=== PATIENT | male | born 1935 | race Caucasian/White ===

== ENCOUNTER 2017-03-13 16:52 | Emergency (ER) | payer MEDICARE, OTHER, SELFPAY ==
[2017-03-13 16:52] VITALS: BP 121/58; PULSE 67; RESP 15; TEMP 36.4; O2SAT 93; BMI 32.6
--- NOTE | 2017-03-13 17:23 | ED.VISSUMM ---
- ER Visit Summary Date of Service: 03/13/17 Chief Complaint: Fell attempting to go to the restroom History of Present Illness: The patient is a 81 M who has history of frequent falls. He states the nurse did not respond to his call light. Got up to use the restroom since he did not want to wet himself. He fell complaining of pain left pelvic area near the insertion site of the quadricep for Berny tendon. He also sustained a laceration left elbow. He denied head trauma. He denies headache. He denies nausea or vomiting. He denies any ocular, visual or auditory symptoms. He denies neck pain. He denies paresthesia, anesthesia moderates present at time of the fall. He denies any cardiorespiratory symptoms. Physical Examination: Should not is alert and oriented ?3. Vital signs are unremarkable. Head is atraumatic normocephalic. Pupils are equal round reactive. Extraocular muscles are intact. TMs are pearly white with landmarks noted. Nares patent with no drainage. Posterior pharynx without erythema or exudate. Uvula is midline. There is no dysphonia or dysphasia. Trachea is midline. There is no stridor with auscultation of the neck. There is no evidence of head trauma. There is no clinical signs of basal skull fracture. C-spine was cleared per Nexus criteria. Heart is regular without murmur, gallop or rub. S1 and S2 are normal. Lungs are clear to auscultation with good movement of air bilaterally. He has a linear laceration left elbow which will require repair. Axillary, median, radial and ulnar function intact. There is no pain the patient over the medial or lateral epicondyles or the olecranon process. There is no pain the patient over the radial head with supination pronation. There is pain palpation left pelvic area near the left superior pubic ramus. He has pain with flexion of the hip. DP pulses palpable. There is no pain with logrolling of the left lower external he appears no pain the patient over the femur, knee, tibia or fibula, ankle or foot. GCS is 15. Patient is alert and oriented ?3. Motor is 5/5. Sensation is intact. DTRs are symmetric without clonus or Babinski. Cranial nerves II through XII are intact. Finger to nose to finger was performed adequately. Test Results: Single view x-ray of the pelvis reveals no acute findings i.e. fracture. There is arthritic changes. Emergency Department Course and Treatment: The pelvis was obtained to evaluate for pull off fracture. The left elbow laceration will require repair. Treatment Plan: Recent wound was anesthetized with lidocaine. The wound was irrigated with 200 cc normal saline. Using 4-0 Ethilon a total of 3 stitches was placed. Disposition: Discharged to home with appropriate home-going instructions Impression: 1. Mechanical fall with injury initial encounter 2. Left quadricep femoris muscle strain 3. 2 cm left elbow laceration 4. High risk medication, Coumadin This note was generated with [employer] dictation software. It may contain incorrect words, spelling, and punctuation that were not noted in review of the chart prior to signing ED Disposition - Plan for ED Patient: Disposition: Home or Assisted Living Chief Complaint: Fall Instructions: ED Mechanical Fall, ED Laceration Ext Sutr Tape Ch, ED Sprain Hip Referrals: Alpesh Edgar III, MD [Primary Care Provider] - 10 Day for suture removal Additional Instructions: Apply ice to left groin 20-30 minutes at a time 6 day times a day for the next 3-5 days.
--- NOTE | 2017-03-13 17:25 | RAD_ITS ---
STUDY: X-RAY - PELVIS REASON FOR EXAM: Male, 81 years old. Left groin pain. TECHNIQUE: One view of the pelvis was obtained. COMPARISON: None. FINDINGS: There is a non-specific bowel gas pattern. Normal visualized soft tissue structures. There is generalized osteopenia. Normal bilateral iliac wings, sacroiliac joints and visualized sacrum. Normal visualized bilateral superior and inferior pubic rami. Normal pubic symphysis. Normal ischial tuberosities. There is mild arthrosis of both hips. RAD/Pelvis 1 or 2 Views IMPRESSION: Osteopenia with arthrosis of both hips. No acute pathology. Electronically Signed: Eddi Salcedo MD at 17:55 EST , Service support ,
[2017-03-13] MEDS: Diphth,Pertuss(Acell),Tet Vac 0.5 ML Vial IM (17:50)
[2017-03-13 18:14] LABS: Partial Thromboplast Time 30.3 Seconds (24.1-36.2)
[2017-03-13] MEDS: Acetaminophen 325 MG Tablet 650 MG PO (19:11)
[2017-03-13 19:21] VITALS: BP 127/65; PULSE 71; RESP 16; O2SAT 94
--- NOTE | 2017-03-13 19:24 | ED.VISSUMM ---
- ER Visit Summary Date of Service: 03/13/17 Chief Complaint: [] History of Present Illness: The patient is a 81 M [] Physical Examination: [] Test Results: [] Emergency Department Course and Treatment: [] Treatment Plan: [] Disposition: [] Impression: [] This note was generated with [employer] dictation software. It may contain incorrect words, spelling, and punctuation that were not noted in review of the chart prior to signing ED Disposition - Plan for ED Patient: Disposition: Home or Assisted Living Chief Complaint: Fall Instructions: ED Mechanical Fall, ED Sprain Hip, ED Laceration Ext Sutr Tape Ch Prescriptions: Hydrocodone Bitart/Apap 5-325 [[place] 5MG-325MG] 1 tablet PO Q6H PRN PRN #10 tablet PRN Reason: Pain Referrals: Alpesh Edgar III, MD [Primary Care Provider] - 10 Day for suture removal Additional Instructions: Apply ice to left groin 20-30 minutes at a time 6 day times a day for the next 3-5 days.
--- NOTE | 2017-03-13 19:28 | ED.DCSUM_ITS ---
- ER Visit Summary Date of Service: 03/13/17 Chief Complaint: [] History of Present Illness: The patient is a 81 M [] Physical Examination: [] Test Results: [] Emergency Department Course and Treatment: [] Treatment Plan: [] Disposition: [] Impression: [] This note was generated with [employer] dictation software. It may contain incorrect words, spelling, and punctuation that were not noted in review of the chart prior to signing ED Disposition - Plan for ED Patient: Disposition: Home or Assisted Living Chief Complaint: Fall Instructions: ED Mechanical Fall, ED Sprain Hip, ED Laceration Ext Sutr Tape Ch Prescriptions: Hydrocodone Bitart/Apap 5-325 [[place] 5MG-325MG] 1 tablet PO Q6H PRN PRN #10 tablet PRN Reason: Pain Referrals: Alpesh Edgar III, MD [Primary Care Provider] - 10 Day for suture removal Additional Instructions: Apply ice to left groin 20-30 minutes at a time 6 day times a day for the next 3 -5 days.
== END 2017-03-13 20:01 | disposition home or self-care (01) ==
PROVIDERS: Emergency Provider Emergency Medicine; Family Provider Family Medicine; PCP Family Medicine
DX: S76.112A Strain of left quadriceps muscle, fascia and tendon, initial encounter (principal); S51.012A Laceration without foreign body of left elbow, initial encounter; W18.30XA Fall on same level, unspecified, initial encounter; Y93.9 Activity, unspecified; Y92.9 Unspecified place or not applicable; Y99.9 Unspecified external cause status; I48.91 Unspecified atrial fibrillation; E11.9 Type 2 diabetes mellitus without complications; R29.6 Repeated falls; Z79.4 Long term (current) use of insulin; Z79.01 Long term (current) use of anticoagulants; Z79.899 Other long term (current) drug therapy; Z85.72 Personal history of non-Hodgkin lymphomas; Z86.718 Personal history of other venous thrombosis and embolism; Z86.73 Personal history of transient ischemic attack (TIA), and cerebral infarction without residual deficits
CPT/HCPCS: 12001; 36415; 72170; 85730; 90471; 90715; 99285; J7030

== ENCOUNTER 2017-08-17 00:29 | Emergency (ER) | payer MEDICARE, OTHER, SELFPAY ==
[2017-08-17 00:30] VITALS: BP 109/61; PULSE 71; RESP 16; TEMP 36.5; O2SAT 93; BMI 30.1
--- NOTE | 2017-08-17 01:50 | ED.VISSUMM ---
- ER Visit Summary Date of Service: 08/17/17 Chief Complaint: Fall with skin tears and left ear laceration History of Present Illness: The patient is a 82 M on Coumadin due to A. fib and he also has a heart valve. Patient states he lost his balance and fell striking the arm of a chair that was metal cutting his left ear. Said he did not strike his face or his head just the ear. Also dorsum of his right hand and left arm has skin tears which they have already bandaged. He denies other injuries. He denies any LOC. He denies any headache. Denies any hip pain. Physical Examination: Older male no acute distress. Vital signs are stable afebrile. No distress. H EENT exam pupils round reactive light. No facial trauma. No scalp trauma no tenderness. His left upper ear is a through and through laceration and will need to be repaired. It is more than 3 cm in length. Neck nontender trachea midline. C-spine nontender. Lungs clear to auscultation bilaterally. Heart regular rate and rhythm no murmur. Chest wall nontender. Abdomen soft nontender. Normal bowel sounds no peritoneal signs. Pelvic girdle intact. Extremities moving all 4. No deformity. Nontender. Normal range of motion. Bilateral 5 out of 5 yard jacker strength. Bilateral dorsi and plantar flexion. Back nontender. Neurologically is awake alert answering his own questions. Following commands. Moving his extremities. Test Results: None. At this time I do not think he has a head injury I think he lacerated his ear but did not strike his head. There are no signs of head trauma nor does he have a headache we will defer a CAT scan at this time. Emergency Department Course and Treatment: Left upper ear laceration repair. 6-7 cm in length. Area was cleaned with Shur-Clens and washed and irrigated with saline. Locally anesthetized with 1% lidocaine. Let was previously applied. Closed using simple interrupted # 7 5-0 Ethilon sutures. Proper hemostasis wound closure obtained patient tolerated procedure well. Treatment Plan: Suture removal 10 days. Ice to the wound. Wound care. Keflex 500 4 times daily for 5 days due to the cartilage laceration. Disposition: Discharge Impression: Acute fall Left upper outer ear laceration through and through with cartilage involvement of 7 centimeters with ER repair Minor skin tears dorsum of his right hand and left arm This note was generated with [employer] dictation software. It may contain incorrect words, spelling, and punctuation that were not noted in review of the chart prior to signing ED Disposition - Plan for ED Patient: Chief Complaint: Fall Referrals: Alpesh Edgar III, MD [Primary Care Provider] -
--- NOTE | 2017-08-17 01:53 | ED.DCSUM_ITS ---
- ER Visit Summary Date of Service: 08/17/17 Chief Complaint: Fall with skin tears and left ear laceration History of Present Illness: The patient is a 82 M on Coumadin due to A. fib and he also has a heart valve. Patient states he lost his balance and fell striking the arm of a chair that was metal cutting his left ear. Said he did not strike his face or his head just the ear. Also dorsum of his right hand and left arm has skin tears which they have already bandaged. He denies other injuries. He denies any LOC. He denies any headache. Denies any hip pain. Physical Examination: Older male no acute distress. Vital signs are stable afebrile. No distress. H EENT exam pupils round reactive light. No facial trauma. No scalp trauma no tenderness. His left upper ear is a through and through laceration and will need to be repaired. It is more than 3 cm in length. Neck nontender trachea midline. C-spine nontender. Lungs clear to auscultation bilaterally. Heart regular rate and rhythm no murmur. Chest wall nontender. Abdomen soft nontender. Normal bowel sounds no peritoneal signs. Pelvic girdle intact. Extremities moving all 4. No deformity. Nontender. Normal range of motion. Bilateral 5 out of 5 hat measurer strength. Bilateral dorsi and plantar flexion. Back nontender. Neurologically is awake alert answering his own questions. Following commands. Moving his extremities. Test Results: None. At this time I do not think he has a head injury I think he lacerated his ear but did not strike his head. There are no signs of head trauma nor does he have a headache we will defer a CAT scan at this time. Emergency Department Course and Treatment: Left upper ear laceration repair. 6- 7 cm in length. Area was cleaned with Shur-Clens and washed and irrigated with saline. Locally anesthetized with 1% lidocaine. Let was previously applied. Closed using simple interrupted # 7 5-0 Ethilon sutures. Proper hemostasis wound closure obtained patient tolerated procedure well. Treatment Plan: Suture removal 10 days. Ice to the wound. Wound care. Keflex 500 4 times daily for 5 days due to the cartilage laceration. Disposition: Discharge Impression: Acute fall Left upper outer ear laceration through and through with cartilage involvement of 7 centimeters with ER repair Minor skin tears dorsum of his right hand and left arm This note was generated with [employer] dictation software. It may contain incorrect words, spelling, and punctuation that were not noted in review of the chart prior to signing ED Disposition - Plan for ED Patient: Chief Complaint: Fall Referrals: Alpesh Edgar III, MD [Primary Care Provider] -
[2017-08-17] MEDS: Lidocaine/Epi/Tetracaine 50 ML 1 APPLIC TOPICAL (02:03)
--- NOTE | 2017-08-17 02:38 | ED.DEP ---
ED Disposition - Plan for ED Patient: Disposition: Home or Assisted Living Chief Complaint: Fall Instructions: ED Laceration Facial Sutr Tape Prescriptions: Cephalexin [Keflex] 500 mg PO Q6 #20 cap Referrals: Alpesh Edgar III, MD [Primary Care Provider] - 10 Day for suture removal Additional Instructions: Keep wound clean. Clean twice daily with soap and water or peroxide and water. Dry thoroughly. Apply antibiotic ointment to the wound. Apply ice to decrease the swelling of the ear. Suture removal in 10 days. There are 7 simple interrupted sutures. Watch for any signs of infection. Keflex 1 pill 4 times a day for 5 days. This was due to the laceration of the ear cartilage.
[2017-08-17 02:54] VITALS: BP 106/70; PULSE 65; RESP 15; O2SAT 94
== END 2017-08-17 03:40 | disposition skilled nursing facility (03) ==
PROVIDERS: Emergency Provider Emergency Medicine; Family Provider Family Medicine; PCP Family Medicine
DX: S01.312A Laceration without foreign body of left ear, initial encounter (principal); S61.411A Laceration without foreign body of right hand, initial encounter; S41.112A Laceration without foreign body of left upper arm, initial encounter; W01.190A Fall on same level from slipping, tripping and stumbling with subsequent striking against furniture, initial encounter; Y93.9 Activity, unspecified; Y92.9 Unspecified place or not applicable; Y99.9 Unspecified external cause status; I48.91 Unspecified atrial fibrillation; Z79.82 Long term (current) use of aspirin; Z79.01 Long term (current) use of anticoagulants; Z79.899 Other long term (current) drug therapy
CPT/HCPCS: 12014; 99285

== ENCOUNTER → 2018-07-02 11:08 | Outpatient (CLI) | payer MEDICARE, OTHER, SELFPAY ==
[2018-07-02 11:51] LABS: Absolute Lymphocyte Count 1.65 X10^3/ul (0.83-4.51); Absolute Neutrophil Count 3.1 X10^3/uL (2.0-7.7); Basophil# 0.03 X10^3/uL; Basophil% 0.6 % (0-1); Eosinophil# 0.15 X10^3/uL; Eosinophils% 2.8 % (0-5); Hematocrit 37.4 % (40-54); Hemoglobin 12.1 g/dl (13.0-16.5); Lymphocyte # 1.65 X10^3/ul (4.0); Lymphocyte % 30.4 % (19-41); Mean Corp Hgb Conc 32.4 g/gl (32-36); Mean Corpuscular Hgb 31.5 pg (27.0-32.0); Mean Corpuscular Volume 97.4 fL (80-94); Mean Platelet Vol. 11.5 fl (6.2-12.0); Monocyte# 0.52 X10^3/uL; Monocyte% 9.6 % (0-10); Neutrophil # 3.07 X10^3/uL (2.7-7.7); Neutrophil % 56.4 % (47-70); Platelet Count 196 K/mm3 (150-450); RBC Distribution Width CV 16.2 % (11.6-14.6); Red Blood Count 3.84 M/mm3 (4.6-6.2); White Blood Count 5.4 K/mm3 (4.4-11.0)
[2018-07-02 11:54] LABS: POSITIVE COUNT NO; POSITIVE DIFFERENTIAL NO; POSITIVE MORPHOLOGY NO
[2018-07-02 12:17] LABS: BUN 26 mg/dL (7-18); Creatinine, Serum 1.92 mg/dL (0.70-1.30); EST Glomerular Filtration Rate 36 mL/min (>60); Glucose 107 mg/dL (74-106)
[2018-07-02 12:18] LABS: Anion Gap 4 (5-15); BUN/Creat Ratio 13.5 RATIO (10-20); Calcium,Total 8.5 mg/dL (8.5-10.1); Chloride 112 mmol/L (98-107); Est Glom Filt Rate - Afr Amer 43 mL/min (>60); Potassium 4.8 mmol/L (3.5-5.1); Sodium Level 143 mmol/L (136-145)
== END ==
PROVIDERS: Family Provider Family Medicine; PCP Family Medicine; Referring Provider Internal Medicine Cardiovascular Disease; Visit Provider Internal Medicine Cardiovascular Disease
DX: I10 Essential (primary) hypertension (principal); I48.91 Unspecified atrial fibrillation
CPT/HCPCS: 36415; 80048; 85025

== ENCOUNTER 2018-07-10 12:15 | Inpatient (IN) | payer MEDICARE, OTHER, SELFPAY ==
[2018-07-10] VITALS (15 sets, daily range): BP systolic 98–175; BP diastolic 57–87; PULSE 76–89; RESP 12–40; TEMP 36.3–36.9; O2SAT 95–100; BMI 32.3; BMI 29.8
--- NOTE | 2018-07-10 12:38 | CT_ITS ---
STUDY: CT ABDOMEN AND PELVIS WITHOUT CONTRAST REASON FOR EXAM: Male, 83 years old. Altered mental status, shortness of breath RADIATION DOSAGE (If Supplied By Facility): CTDIvol = ( 23.01 ) mGy, DLP = ( 1259.20 ) mGycm TECHNIQUE: Transaxial images were obtained from the dome of the diaphragm to the symphysis pubis without oral contrast, and without intravenous contrast. Sagittal and coronal images were reconstructed. Individualized dose optimization techniques were used for this CT. COMPARISON: None. FINDINGS: There are chronic interstitial fibrotic changes of the lung bases. Cardiac conduction device, coronary artery atherosclerosis and mitral valve calcifications partially visualized. No hepatic masses. There are multiple gallstones. There are multiple benign calcified granulomata of the liver and spleen. Normal pancreas. Normal bilateral adrenal glands. There is moderate cortical atrophy of the right kidney, consistent with chronic medical renal disease. There is moderate cortical atrophy of the left kidney, consistent with chronic medical renal disease. No hydronephrosis. Normal visualized stomach. Normal small intestine. Normal colon. There is non-visualization of the appendix. There is diffuse atherosclerotic calcification of the abdominal aorta, without a demonstrated aneurysm. Normal inferior vena cava. Normal retroperitoneum. Chahal catheter decompresses urinary bladder. There is slight induration in the presacral adipose tissue and may be related to prior surgery or radiation therapy. No focal fluid collection or mass seen. There is an injection granuloma of the right buttock. There are diffuse degenerative changes of the visualized lumbar spine. Compression fracture of L2 (mild) is likely chronic. CT/Abdomen/Pelvis without Cont IMPRESSION: 1. No acute inflammatory process or bowel obstruction. 2. Cholelithiasis without CT evidence of cholecystitis. 3. Probable postradiation or postsurgical changes of the presacral pelvis. No focal mass or fluid collection. 4. Chahal catheter. Electronically Signed: Ayden Garcia MD at 15:23 EDT , Service support ,
--- NOTE | 2018-07-10 12:38 | CT_ITS ---
STUDY: CT BRAIN WITHOUT CONTRAST REASON FOR EXAM: Male, 83 years old. Altered mental status with increased weakness RADIATION DOSAGE (If Supplied By Facility): CTDIvol = ( 29.64 ) mGy, DLP = ( 514.31 ) mGycm TECHNIQUE: Transaxial CT imaging of the brain was performed without administration of intravenous contrast material. Individualized dose optimization techniques were used for this CT. COMPARISON: 10/23/2015 FINDINGS: Normal soft tissue structures. Normal calvarium. There is mild cerebral atrophy with widening of the extra-axial spaces and ventricular dilatation. There are areas of decreased attenuation within the white matter tracts of the supratentorial brain, consistent with microvascular disease changes. Normal basal ganglia and thalami. Normal brainstem. Normal cerebellum. There is no intracranial hemorrhage. There are no findings of an acute ischemic infarction. Normal visualized paranasal sinuses. CT/Brain/Head without Contrast IMPRESSION: 1. No acute intracranial hemorrhage or mass effect. 2. Central parenchymal volume loss. White matter changes that are nonspecific but most commonly associated with chronic small vessel ischemic disease. Electronically Signed: Ayden Garcia MD at 15:16 EDT , Service support ,
--- NOTE | 2018-07-10 12:38 | EKG12_ITS ---
Test Reason : Blood Pressure : / mmHG Vent. Rate : 081 BPM Atrial Rate : 267 BPM P-R Int : 000 ms QRS Dur : 120 ms QT Int : 406 ms P-R-T Axes : 000 103 045 degrees QTc Int : 471 ms Atrial fibrillation Rightward axis Non-specific intra-ventricular conduction delay Nonspecific ST and T wave abnormality Abnormal ECG Confirmed by CONRAD THOMAS, JAYA ([id number]), deputy editor in chief [facility] [employer] ([id number]) on 07/14/2018 11:50:49 AM Referred By: TRIP Confirmed By:JAYA MARTINES MD
--- NOTE | 2018-07-10 12:46 | ED.VISSUMM ---
- ER Visit Summary Date of Service: 07/10/18 Chief Complaint: Shortness of breath History of Present Illness: The patient is a 83 M with shortness of breath and multiple other medical complaints. Symptoms have been going on for about a week and a half but were worse over the past 3 days. The patient is currently a resident at [facility]. He has been short of breath and wheezing. He may have some airspace disease on his x-ray. He has been confused and not eating much. He has been complaining of lower abdominal and back pain. He also reports bilateral leg pain. Patient has a history of B-cell lymphoma and brain cancer. He is told he is in remission. He is DNR comfort care arrest. He is okay with intubation if need be. History of atrial fibrillation, DVT, anemia, seizure, bipolar disorder, hypertension, hyperlipidemia, pacemaker, and others. He does take Coumadin. Physical Examination: Afebrile and vital signs unremarkable except for his respiratory rate of 40. Patient is 95% on room air. He is speaking in 1-2 word phrases. He is oriented, but he is intermittently somnolent. Head and neck are atraumatic. Heart is regular. Lungs are diminished in all goldman. Abdomen is soft and nontender. Extremities nontender. Skin is pale. Test Results: EKG pending. CT brain, chest x-ray, and CT abdomen pending. Sepsis labs and ABG pending. Cultures pending. Emergency Department Course and Treatment: Patient was placed on the monitor. We will try BiPAP to help with his work of breathing. Will check EKG, imaging, and labs as above. Will reassess. EKG showed atrial fibrillation and rate of 81. Chest x-ray showed right lower lobe infiltrate and a right upper lobe nodule. CT brain and CT abdomen pelvis showed chronic changes but nothing acute. He has cholelithiasis without cholecystitis and a Chahal catheter in place. Postoperative and postradiation changes. Hemoglobin 11.0. BUN 39, creatinine 2.32. Liver enzymes are about 300. Lipase normal. INR 7.0. Troponin 0.027. Lactate 2.4. ABG unremarkable. Blood cultures pending. Patient was taken off of BiPAP when he underwent CT. He seemed to be doing well on nasal cannula. He is breathing fast at times, but I think he is anxious. He has no respiratory symptoms or signs of distress. Patient's pneumonia treated with Zosyn and vancomycin. He is a half-way resident. He did have a systolic pressure of 100, but his map was greater than 65. No sign of shock. Technically he does not meet sepsis criteria, but his infection with elevated lactate are concerning for sepsis. I treated him with additional fluids IV. INR is 7.0, but the patient has no evidence of bleeding. Patient's liver enzymes are elevated. This is new. I added a hepatic panel. Hospitalist was contacted for admission. Treatment Plan: As above Disposition: Admission Impression: 1. Pneumonia healthcare associated 2. Elevated lactic acid 3. Supratherapeutic INR 4. Lung nodule 5. Elevated liver enzymes 6. Acute kidney injury This note was generated with [email or web address] dictation software. It may contain incorrect words, spelling, and punctuation that were not noted in review of the chart prior to signing ED Disposition - Plan for ED Patient: Referrals: Alpesh Edgar III, MD [Primary Care Provider] -
[2018-07-10] MEDS: 0.9% Normal Saline 1,000 ML IV.SOLN. 1000 ML IV (12:50)
[2018-07-10 12:53] LABS: Absolute Lymphocyte Count 1.41 X10^3/ul (0.83-4.51); Absolute Neutrophil Count 4.2 X10^3/uL (2.0-7.7); Basophil# 0.02 X10^3/uL; Basophil% 0.3 % (0-1); Eosinophil# 0.06 X10^3/uL; Eosinophils% 0.9 % (0-5); Hematocrit 33.4 % (40-54); Lymphocyte # 1.41 X10^3/ul (4.0); Lymphocyte % 21.5 % (19-41); Mean Corp Hgb Conc 32.9 g/gl (32-36); Mean Corpuscular Hgb 31.5 pg (27.0-32.0); Mean Corpuscular Volume 95.7 fL (80-94); Mean Platelet Vol. 11.9 fl (6.2-12.0); Monocyte# 0.87 X10^3/uL; Monocyte% 13.2 % (0-10); Neutrophil % 63.9 % (47-70); POSITIVE COUNT NO; POSITIVE DIFFERENTIAL NO; POSITIVE MORPHOLOGY NO; Platelet Count 178 K/mm3 (150-450); RBC Distribution Width CV 16.6 % (11.6-14.6); RBC Distribution Width SD 57.2 fl (35.1-43.9); Red Blood Count 3.49 M/mm3 (4.6-6.2); White Blood Count 6.6 K/mm3 (4.4-11.0)
--- NOTE | 2018-07-10 12:54 | RAD_ITS ---
STUDY: X-RAY CHEST REASON FOR EXAM: Male, 83 years old. Dyspnea TECHNIQUE: AP COMPARISON: 06/25/2015 FINDINGS: EKG leads project over the chest. 2-lead cardiac conduction device is stable. Surgical clips of the left breast/axilla stable. Patchy infiltrates in the right lung base with nodular infiltrate in the right upper lobe, new since the prior study. The nodular component measures 3.7 cm. There is moderate cardiac enlargement. Sternal wires and mediastinal surgical clips compatible with prior CABG. Normal visualized pulmonary arteries. Normal visualized aortic arch and descending thoracic aorta. No acute bony process. There is no demonstrated abnormality of the visualized soft tissue structures of the upper abdomen. RAD/Chest 1 View (Portable) IMPRESSION: 1. Right lower lobe infiltrate suggesting pneumonia. 2. Right upper lobe nodular density could also represent infection/pneumonia, however, follow-up x-ray after appropriate medical therapy recommended to ensure resolution. Electronically Signed: Ayden Garcia MD at 13:14 EDT , Service support ,
[2018-07-10 12:59] LABS: Prothrombin Time (Protime)PT. 61.4 SECONDS (11.7-14.9)
[2018-07-10 13:00] LABS: Partial Thromboplast Time 63.2 Seconds (24.1-36.2)
[2018-07-10 13:09] LABS: ALB/GLOB Ratio 0.7 RATIO (0.9-2.4); AST(SGOT) 298 U/L (15-37); Alanine Aminotransfer ALT/SGPT 282 U/L (16-61); Albumin, Serum 2.8 g/dL (3.2-5.0); Alkaline Phosphatase 92 U/L (45-117); Anion Gap 9 (5-15); BUN 39 mg/dL (7-18); BUN/Creat Ratio 16.8 RATIO (10-20); Calcium,Total 7.8 mg/dL (8.5-10.1); Chloride 112 mmol/L (98-107); Creatinine, Serum 2.32 mg/dL (0.70-1.30); EST Glomerular Filtration Rate 29 mL/min (>60); Est Glom Filt Rate - Afr Amer 35 mL/min (>60); Estimated Creatinine Clearance 30.14 ml/min; Glucose 123 mg/dL (74-106); Lipase 38 U/L (73-393); Potassium 4.2 mmol/L (3.5-5.1); Protein, Total 6.8 g/dL (6.4-8.2); Sodium Level 142 mmol/L (136-145)
--- NOTE | 2018-07-10 13:14 | ED.RN ---
arlet inr 7.0 called from the lab
[2018-07-10 13:16] LABS: Lactic Acid 2.4 mmol/L (0.4-2.0)
--- NOTE | 2018-07-10 13:16 | ED.RN ---
lactic 2.4 called from the lab dr [place]
[2018-07-10 13:53] LABS: Bacteria 0 SEEN /hpf (None Seen); Mucous, Urine 0 SEEN /hpf (<or=2+); Squamous Epithelial Cells - UA 0 SEEN /hpf (0-5); White Blood Cells 0 SEEN /hpf (0-5)
--- NOTE | 2018-07-10 14:09 | ED.RN ---
SPOKE WITH MD REGARDING LACTATE, NO NEW ORDERS GIVEN AT THIS TIME.
--- NOTE | 2018-07-10 14:10 | ED.RN ---
[facility] CALLED AND STATED THAT THE INR THEY HAD DRAWN YESTERDAY WAS 7.6. MD CASTILLO.
[2018-07-10 14:25] LABS: Allen Test POS; Base Excess -5 mmol/L (-2 to +2); Bicarbonate 19.7 mmol/L (22-26); Blood Gas Specimen Type ART; EPAP 8; FI02 35; IPAP 12; PO2 145 mmHG (75-100); RR 12; SITE R Radial; SO2 99 % (95-99); Time Given 1412; Total Carbon Dioxide 21 mmol/L; pH 7.38 (7.35-7.45)
[2018-07-10 14:40] LABS: Color, Urine Yellow (Yellow); Glucose, Dipstick Normal (Normal); Ketone-Dipstick 5 mg/dl (Negative); Leukocyte Esterase-Dipstick 25 /ul (Negative); Nitrite-Dipstick Negative (Negative); Occult Blood-Urine 50 /ul (Negative); Protein-Dipstick 30 mg/dl (Negative); Specific Gravity, Urine 1.025 (1.002-1.030); Urine Bilirubin Dipstick Negative (Negative); Urine Clarity Clear (Clear); Urine Urobilinogen 1 mg/dl (Normal)
[2018-07-10 14:54] LABS: Red Blood Cells-Urine 0-5 SEEN /hpf (0-5)
[2018-07-10] MEDS: 0.9% Normal Saline 1,000 ML 999 ML IV (16:05)
[2018-07-10 16:44] LABS: Reflex Lactate? Y
--- NOTE | 2018-07-10 16:49 | HP.PCM_ITS ---
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 The patient is a 83 year old M who presents from senior care facility to emergency room due to shortness of breath, cough, chills. He reports his symptoms began approximately 2 days ago. He states cough is nonproductive. Patient reports he has had intermittent abdominal discomfort as well across the lower abdomen. Denies flank pain, urinary symptoms. Denies nausea, vomiting, diarrhea. at bedside reports patient has been in the nursing facility for approximately 3 years due to debility following treatment for metastatic B-cell lymphoma and also history of CVA. His other past medical history includes type 2 diabetes mellitus, permanent atrial fibrillation on chronic anticoagulation with Coumadin, GERD, BPH, hyperlipidemia, gout, anxiety/depression. 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, non-EBV mediated (Chronic) C85.99 B-cell lymphoma (Acute) C85.10 BPH (benign prostatic hyperplasia) N40.0 Bipolar disorder F31.9 CVA (cerebral vascular accident) I63.9 Cardiomyopathy I42.9 DVT (deep venous thrombosis) I82.409 Delusional disorder F22 Esophageal stricture K22.2 GERD (gastroesophageal reflux disease) K21.9 Gout M10.9 Major depressive disorder F32.9 Melanoma C43.9 Mild cognitive impairment G31.84 Presence of permanent cardiac pacemaker Z95.0 TIA (transient ischemic attack) G45.9 Type 2 diabetes mellitus without complication E11.9 DVT (deep venous thrombosis) (Inactive) I82.409 NHL (non-Hodgkin's lymphoma) (Inactive) C85.90 Allergies levofloxacin Allergy (Verified 07/10/18 12:22) Unknown simvastatin [From Zocor] Allergy (Verified 07/10/18 12:22) Unknown heparin Adverse Reaction (Verified 07/10/18 12:22) Low platelets Home Medications: Ambulatory Orders Medication Instructions Recorded Ondansetron [Zofran] 4 mg PO Q6H PRN PRN 05/14/15 Polyethylene Glycol 3350 [Miralax] 17 gm PO DAILY 05/14/15 Sennosides/Docusate Sodium 1 ea PO BID 05/14/15 [Senna-Docusate Sodium Tablet] Allopurinol [Zyloprim] 100 mg PO DAILYCM #0 tab 06/24/15 Famotidine [Pepcid] 20 mg PO DAILY #0 tab 06/24/15 Bisacodyl 10 mg RC PRN PRN 08/17/17 Guaifenesin [Robitussin] 10 ml PO Q4H PRN PRN 08/17/17 Hydrocortisone [Anusol Hc] 25 mg RECTAL BID PRN PRN 08/17/17 Magnesium Hydroxide [Milk Of 30 ml PO DAILY PRN PRN 08/17/17 Magnesia] Magnesium Oxide [Magnesium] 400 mg PO QHS 08/17/17 Melatonin 2 mg PO QHS 08/17/17 Menthol [Biofreeze] 1 applic TP Q2H PRN PRN 08/17/17 Midodrine HCl [Proamatine] 2.5 mg PO TID 08/17/17 Mineral Oil/Petrolatum,White 1 applic TOPICAL DAILY PRN PRN 08/17/17 [Eucerin] Na Phos,M-B/Na Phos,Di-Ba [Fleet 120 ml RECTAL PRN PRN 08/17/17 Enema] Tamsulosin HCl [Flomax] 0.4 mg PO DAILY@1730 08/17/17 Warfarin [Coumadin (PBKC)] 5 mg PO SUTUTHSA 07/02/18 Warfarin [Coumadin] 2.5 mg PO MOWEFR 08/17/17 buPROPion XL [Wellbutrin Xl] 300 mg PO DAILY 08/17/17 acetaminophen 650 mg rectal 650 mg RC Q4H PRN PRN 07/01/18 suppository aluminum-magnesium hydroxide 200 30 ml PO Q4H PRN ml 07/01/18 mg-200 mg/5 mL oral suspension artificial tears (hypromellose) 2 drp OPHTHALMIC 4-8XD 07/01/18 (PF) 0.3 % eye drops loratadine 10 mg tablet 10 mg PO DAILY 07/01/18 polysaccharide iron complex 150 mg 150 mg PO DAILY cap 07/01/18 iron capsule quetiapine 25 mg tablet 25 mg PO BID 07/01/18 Acetaminophen [Tylenol Tablet] 650 mg PO Q4H PRN PRN 07/10/18 Amoxicillin/Potassium Clav 1 each PO BID 07/10/18 [Augmentin 875-125 Tablet] Aspirin [Aspir-Low] 81 mg PO DAILY 07/10/18 Atorvastatin Calcium [Lipitor] 40 mg PO QHS 07/10/18 Surgical History: Surgical History (Last Reviewed 07/02/18 @ 10:42 by Wil Hart MD) History of mitral valve repair (Resolved) Onset Date: 10/2008 Z98.890 #33 bicor ring History of cardioversion Onset Date: 10/25/08 Z98.890 History of left heart catheterization Onset Date: 06/2008 Z98.890 History of radiofrequency ablation (RFA) procedure for cardiac arrhythmia Z98.890 x 4 - unsuccessful Surgical History: pacemaker implantation - 2008, - - melanoma on back, mitral valve replacement ( porcine ) 2007, brain biopsy 03/27/15 Psychiatric History: Anxiety, Depression [facility] Smoking Status: Smoker, status unknown Alcohol: None Drugs: None - *Family History Maternal Family History: Family History (Last Reviewed 07/10/18 @ 16:50 by ALETHA Barajas) Father Pulmonary embolism Mother Arthritis Sister hyperlipidemia Sister Breast cancer Sister Cancer History Items: Cancer, Heart Disease - age 96 Sibling Family History: Family History (Last Reviewed 07/10/18 @ 16:50 by ALETHA Barajas) Father Pulmonary embolism Mother Arthritis Sister hyperlipidemia Sister Breast cancer Sister Cancer History Items: Cancer - brain,melanoma, age 36 Paternal Family History: Family History (Last Reviewed 07/10/18 @ 16:50 by ALETHA Barajas) Father Pulmonary embolism Mother Arthritis Sister hyperlipidemia Sister Breast cancer Sister Cancer History Items: - - age 46 accident Review of Systems Constitutional: Reports: Chills, Malaise, Fatigue. Denies: Fever HEENT: Denies: Head Aches, Sinus Congestion, Sinus Drainage Cardiovascular: Denies: Chest Pain, Edema, Palpitations, Syncope Respiratory: Reports: Cough, Shortness of Breath. Denies: Sputum production Gastrointestinal: Reports: Abdominal Pain. Denies: Constipation, Diarrhea, Nausea, Vomiting Genitourinary: Denies: Dysuria Musculoskeletal: Denies: Joint Pain, Joint Tenderness Skin: Denies: Rash, Wounds Neurological: Denies: Numbness, Tingling, Focal weakness Psychiatric: Reports: Anxiety, Depression. Denies: Homicidal Ideations, Suicidal Ideations Hematologic/ Lymphatic: Denies: Easy Bruising, Easy Bleeding VTE Information - Inpt Only VTE Present on Admission: No VTE Mechan Device Prophylaxis: None VTE Pharm Prophylaxis ordered?: No Reason prophylaxis not ordered:: Medical Contraindication - Physical Exam General: Alert, Oriented x3, Cooperative, - - Fatigued/ill-appearing HEENT: Atraumatic, PERRLA, EOMI, Normocephalic Oral: Dry Mucosa Neck: Supple, No JVD, Negative Carotid Bruits Lungs: Diminished, Rhonchi Cardiovascular: Regular rate, Regular Rhythm, Normal S1, Normal S2 Abdomen: Bowel Sounds Present, Soft, Non Tender, Non-Distended, Obese Extremities: No clubbing, No cyanosis, No edema, Capillary Refill Less than 3 Seconds Skin: No rashes, No breakdown Musculoskeletal: No Tenderness to Palpation of Joints or Extremities Neurological: Cranial nerves II-XII grossly intact, Neuro grossly intact Psych/Mental Status: Flat Affect Vital Signs Temp Pulse Resp BP Pulse Ox 97.9 F 79 28 H 100/69 98 07/10/18 16:32 07/10/18 16:32 07/10/18 16:32 07/10/18 16:32 07/10/18 16:32 Oxygen Flow Rate (L/min) 2 Oxygen Delivery Method Nasal Cannula Weight: 265 lb 3.457 oz Body Mass Index (BMI) 32.3 Laboratory Tests Past 24 Hrs 07/10/18 07/10/1807/10/19 12:25 12:25 12:25 WBC 6.6 RBC 3.49 L Hgb 11.0 L Hct 33.4 L MCV 95.7 H MCH 31.5 MCHC 32.9 RDW 16.6 H RDW Differential 57.2 H Plt Count 178 MPV 11.9 Immature Gran % (Auto) 0.200 Neut % (Auto) 63.9 Lymph % (Auto) 21.5 Emmet % (Auto) 13.2 H Eos % (Auto) 0.9 Baso % (Auto) 0.3 Absolute Neuts (auto) 4.2 Absolute Lymphs (auto) 1.41 Total Counted Not Reportable PT 61.4 H INR 7.0 H* APTT 63.2 H Specimen Type Sample Site pH Bicarbonate Actual POC Total CO2 Base Excess O2 Saturation O2 % ABG pCO2 ABG pO2 Erasmo Test Respiration Rate O2 Delivery Device EPAP IPAP Blood Gas Notified Whom Blood Gas Notified Time Sodium 142 Potassium 4.2 Chloride 112 H Carbon Dioxide 21.0 Anion Gap 9 BUN 39 H Creatinine 2.32 H Estim Creat Clear Calc 30.14 Est GFR (MDRD) Af Amer 35 L Est GFR (MDRD) Non-Af 29 L BUN/Creatinine Ratio 16.8 Glucose 123 H Lactic Acid Calcium 7.8 L Total Bilirubin 1.00 AST 298 H ALT 282 H Alkaline Phosphatase 92 Troponin I 0.027 Total Protein 6.8 Albumin 2.8 L Globulin 4.0 Albumin/Globulin Ratio 0.7 L Lipase 38 L Urine Color Urine Clarity Urine pH Ur Specific [place] Urine Protein Urine Glucose (UA) Urine Ketones Urine Occult Blood Urine Nitrite Urine Bilirubin Urine Urobilinogen Ur Leukocyte Esterase Urine RBC Urine WBC Ur Squamous Epith Cells Urine Bacteria Urine Mucus 07/10/18 07/10/18 07/10/18 12:25 13:49 14:21 WBC RBC Hgb Hct MCV MCH MCHC RDW RDW Differential Plt Count MPV Immature Gran % (Auto) Neut % (Auto) Lymph % (Auto) Emmet % (Auto) Eos % (Auto) Baso % (Auto) Absolute Neuts (auto) Absolute Lymphs (auto) Total Counted PT INR APTT Specimen Type ART Sample Site R Radial pH 7.38 Bicarbonate Actual 19.7 L POC Total CO2 21 Base Excess -5 L O2 Saturation 99 O2 % 35 ABG pCO2 33.0 L ABG pO2 145 H Erasmo Test POS Respiration Rate 12 O2 Delivery Device Bi / C PAP EPAP 8 IPAP 12 Blood Gas Notified Whom ED Blood Gas Notified Time 1412 Sodium Potassium Chloride Carbon Dioxide Anion Gap BUN Creatinine Estim Creat Clear Calc Est GFR (MDRD) Af Amer Est GFR (MDRD) Non-Af BUN/Creatinine Ratio Glucose Lactic Acid 2.4 H Calcium Total Bilirubin AST ALT Alkaline Phosphatase Troponin I Total Protein Albumin Globulin Albumin/Globulin Ratio Lipase Urine Color Yellow Urine Clarity Clear Urine pH 5.0 Ur Specific [place] 1.025 Urine Protein 30 H Urine Glucose (UA) Normal Urine Ketones 5 H Urine Occult Blood 50 H Urine Nitrite Negative Urine Bilirubin Negative Urine Urobilinogen 1 H Ur Leukocyte Esterase 25 H Urine RBC 0-5 SEEN Urine WBC 0 SEEN Ur Squamous Epith Cells 0 SEEN Urine Bacteria 0 SEEN Urine Mucus 0 SEEN Assessment/Plan All Active Problems (Last Reviewed 07/02/18 @ 10:42 by Wil Hart MD) B-cell lymphoma (Resolved) Status post stereotactic brain biopsy (Resolved) 1. Acute hypoxic respiratory failure secondary to healthcare associated pneumonia-chest x-ray admission with right lower lobe infiltrate, right upper lobe nodular density. Afebrile, no leukocytosis. Initially placed on BiPAP on admission, oxygen now stable on room air. Continue supplement oxygen to maintain O2 at or above 90%. IV vancomycin and IV Zosyn. Albuterol and DuoNeb aerosols. Send sputum for culture. Urine for strep Legionella. 2. Permanent atrial fibrillation on chronic anticoagulation, complicated by supratherapeutic INR-hold Coumadin, trend INR. 3. Elevated liver enzymes-CT of abdomen shows cholelithiasis without evidence of cholecystitis, otherwise no acute process. Repeat LFTs in a.m. Hepatitis panel sent in ER. 4. Acute kidney injury on chronic kidney disease stage III-suspect secondary to dehydration. IV fluids, trend BMP. 5. 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 Previously followed with Dr. Cho, currently in remission. 6. History of CVA-continue aspirin, statin. 7. Type 2 diabetes mellitus-does not appear to be on regimen. Accu-Cheks ACHS with sliding scale insulin. 8. GERD- continue PPI. 9. BPH-continue Flomax regimen. Chahal placed in ER. 10. Hyperlipidemia- continue statin. 11. Gout- continue allopurinol regimen. 12. Anxiety/depression-continue home bupropion, quetiapine. 13. Physical debility- Resides at SNF. PT/OT. DVT prophylaxis- SCDs Code status- DNRCCA This patient was seen by ALETHA Barajas under the supervision of Dr. Bradford. 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, non-EBV mediated (Chronic) C85.99 B-cell lymphoma (Acute) C85.10 BPH (benign prostatic hyperplasia) N40.0 Bipolar disorder F31.9 CVA (cerebral vascular accident) I63.9 Cardiomyopathy I42.9 DVT (deep venous thrombosis) I82.409 Delusional disorder F22 Esophageal stricture K22.2 GERD (gastroesophageal reflux disease) K21.9 Gout M10.9 Major depressive disorder F32.9 Melanoma C43.9 Mild cognitive impairment G31.84 Presence of permanent cardiac pacemaker Z95.0 TIA (transient ischemic attack) G45.9 Type 2 diabetes mellitus without complication E11.9 DVT (deep venous thrombosis) (Inactive) I82.409 NHL (non-Hodgkin's lymphoma) (Inactive) C85.90 Allergies levofloxacin Allergy (Verified 07/10/18 12:22) Unknown simvastatin [From Zocor] Allergy (Verified 07/10/18 12:22) Unknown heparin Adverse Reaction (Verified 07/10/18 12:22) Low platelets Surgical History: Surgical History (Last Reviewed 07/02/18 @ 10:42 by Wil Hart MD) History of mitral valve repair (Resolved) Onset Date: 10/2008 Z98.890 #33 bicor ring History of cardioversion Onset Date: 10/25/08 Z98.890 History of left heart catheterization Onset Date: 06/2008 Z98.890 History of radiofrequency ablation (RFA) procedure for cardiac arrhythmia Z98.890 x 4 - unsuccessful - *Family History Maternal Family History: Family History (Last Reviewed 07/10/18 @ 16:50 by ALETHA Barajas) Father Pulmonary embolism Mother Arthritis Sister hyperlipidemia Sister Breast cancer Sister Cancer Sibling Family History: Family History (Last Reviewed 07/10/18 @ 16:50 by ALETHA Barajas) Father Pulmonary embolism Mother Arthritis Sister hyperlipidemia Sister Breast cancer Sister Cancer Paternal Family History: Family History (Last Reviewed 07/10/18 @ 16:50 by ALETHA Barajas) Father Pulmonary embolism Mother Arthritis Sister hyperlipidemia Sister Breast cancer Sister Cancer - Physical Exam Vital Signs Temp Pulse Resp BP Pulse Ox 98.4 F 79 28 H 100/69 98 07/10/18 16:39 07/10/18 16:32 07/10/18 16:32 07/10/18 16:32 07/10/18 16:32 Oxygen Flow Rate (L/min) 2 Oxygen Delivery Method Nasal Cannula Weight: 265 lb 3.457 oz Body Mass Index (BMI) 32.3 Laboratory Tests Past 24 Hrs 07/10/18 07/10/18 07/10/18 12:25 12:25 12:25 WBC 6.6 RBC 3.49 L Hgb 11.0 L Hct 33.4 L MCV 95.7 H MCH 31.5 MCHC 32.9 RDW 16.6 H RDW Differential 57.2 H Plt Count 178 MPV 11.9 Immature Gran % (Auto) 0.200 Neut % (Auto) 63.9 Lymph % (Auto) 21.5 Emmet % (Auto) 13.2 H Eos % (Auto) 0.9 Baso % (Auto) 0.3 Absolute Neuts (auto) 4.2 Absolute Lymphs (auto) 1.41 Total Counted Not Reportable PT 61.4 H INR 7.0 H* APTT 63.2 H Specimen Type Sample Site pH Bicarbonate Actual POC Total CO2 Base Excess O2 Saturation O2 % ABG pCO2 ABG pO2 Erasmo Test Respiration Rate O2 Delivery Device EPAP IPAP Blood Gas Notified Whom Blood Gas Notified Time Sodium 142 Potassium 4.2 Chloride 112 H Carbon Dioxide 21.0 Anion Gap 9 BUN 39 H Creatinine 2.32 H Estim Creat Clear Calc 30.14 Est GFR (MDRD) Af Amer 35 L Est GFR (MDRD) Non-Af 29 L BUN/Creatinine Ratio 16.8 Glucose 123 H Lactic Acid Calcium 7.8 L Total Bilirubin 1.00 AST 298 H ALT 282 H Alkaline Phosphatase 92 Troponin I 0.027 Total Protein 6.8 Albumin 2.8 L Globulin 4.0 Albumin/Globulin Ratio 0.7 L Lipase 38 L Urine Color Urine Clarity Urine pH Ur Specific [place] Urine Protein Urine Glucose (UA) Urine Ketones Urine Occult Blood Urine Nitrite Urine Bilirubin Urine Urobilinogen Ur Leukocyte Esterase Urine RBC Urine WBC Ur Squamous Epith Cells Urine Bacteria Urine Mucus Hepatitis A IgM Ab Hep Bs Antigen Hep B Core IgM Ab Hepatitis C Ab (EIA) 07/10/18 07/10/18 07/10/18 12:25 13:49 14:21 WBC RBC Hgb Hct MCV MCH MCHC RDW RDW Differential Plt Count MPV Immature Gran % (Auto) Neut % (Auto) Lymph % (Auto) Emmet % (Auto) Eos % (Auto) Baso % (Auto) Absolute Neuts (auto) Absolute Lymphs (auto) Total Counted PT INR APTT Specimen Type ART Sample Site R Radial pH 7.38 Bicarbonate Actual 19.7 L POC Total CO2 21 Base Excess -5 L O2 Saturation 99 O2 % 35 ABG pCO2 33.0 L ABG pO2 145 H Erasmo Test POS Respiration Rate 12 O2 Delivery Device Bi / C PAP EPAP 8 IPAP 12 Blood Gas Notified Whom ED Blood Gas Notified Time 1412 Sodium Potassium Chloride Carbon Dioxide Anion Gap BUN Creatinine Estim Creat Clear Calc Est GFR (MDRD) Af Amer Est GFR (MDRD) Non-Af BUN/Creatinine Ratio Glucose Lactic Acid 2.4 H Calcium Total Bilirubin AST ALT Alkaline Phosphatase Troponin I Total Protein Albumin Globulin Albumin/Globulin Ratio Lipase Urine Color Yellow Urine Clarity Clear Urine pH 5.0 Ur Specific [place] 1.025 Urine Protein 30 H Urine Glucose (UA) Normal Urine Ketones 5 H Urine Occult Blood 50 H Urine Nitrite Negative Urine Bilirubin Negative Urine Urobilinogen 1 H Ur Leukocyte Esterase 25 H Urine RBC 0-5 SEEN Urine WBC 0 SEEN Ur Squamous Epith Cells 0 SEEN Urine Bacteria 0 SEEN Urine Mucus 0 SEEN Hepatitis A IgM Ab Hep Bs Antigen Hep B Core IgM Ab Hepatitis C Ab (EIA) 07/10/18 16:38 WBC RBC Hgb Hct MCV MCH MCHC RDW RDW Differential Plt Count MPV Immature Gran % (Auto) Neut % (Auto) Lymph % (Auto) Emmet % (Auto) Eos % (Auto) Baso % (Auto) Absolute Neuts (auto) Absolute Lymphs (auto) Total Counted PT INR APTT Specimen Type Sample Site pH Bicarbonate Actual POC Total CO2 Base Excess O2 Saturation O2 % ABG pCO2 ABG pO2 Erasmo Test Respiration Rate O2 Delivery Device EPAP IPAP Blood Gas Notified Whom Blood Gas Notified Time Sodium Potassium Chloride Carbon Dioxide Anion Gap BUN Creatinine Estim Creat Clear Calc Est GFR (MDRD) Af Amer Est GFR (MDRD) Non-Af BUN/Creatinine Ratio Glucose Lactic Acid Calcium Total Bilirubin AST ALT Alkaline Phosphatase Troponin I Total Protein Albumin Globulin Albumin/Globulin Ratio Lipase Urine Color Urine Clarity Urine pH Ur Specific [place] Urine Protein Urine Glucose (UA) Urine Ketones Urine Occult Blood Urine Nitrite Urine Bilirubin Urine Urobilinogen Ur Leukocyte Esterase Urine RBC Urine WBC Ur Squamous Epith Cells Urine Bacteria Urine Mucus Hepatitis A IgM Ab Pending Hep Bs Antigen Pending Hep B Core IgM Ab Pending Hepatitis C Ab (EIA) Pending Code Visit Addendum: Dr. Bradford I personally examined the patient and reviewed the chart. I agree with the above. 83-year-old male resident of [facility] presenting with cough shortness of breath. He was started on Augmentin 2 days ago for possible pneumonia however was transferred today for worsening shortness of breath. On chest x-ray he was found to have consolidation in his right lower lobe with possible right upper lobe nodule. CT of the head was negative and CT of the abdomen and pelvis did not show anything acute, he does have cholestasis but nothing to indicate a cholecystitis. He was found to have elevated liver enzymes as well as an elevated creatinine. This is likely secondary to the to lack of blood flow given his pneumonia and his acute hypoxic respiratory failure. Unfortunately he did not meet any sirs criteria on admission other than tachypnea, and is therefore not septic. We will continue with vancomycin and Zosyn, and will obtain Legionella antigen as well as a strep antigen and a sputum culture. Blood cultures are pending. Of note his INR is 7 so we will hold his home warfarin dose until his INR corrects. Inpatient E&M: 11751 Init Hosp L3
[2018-07-10 18:07] LABS: Lactic Acid 2.1 mmol/L (0.4-2.0)
[2018-07-10] MEDS: Ipratropium/Albuterol Sulfate 3 ML AMPUL.NEB INHALATION (19:29)
[2018-07-10] MEDS: Acetaminophen 650 MG Suppository RECTAL (21:03)
--- NOTE | 2018-07-10 21:15 | PCM.RX.CS ---
Consult Pharmacy has been consulted to manage selected antiobiotic: Vancomycin Type of Consult: New start Suspected Infection: Pneumonia Labs: Sodium 142 mmol/L (136-145) 07/10/18 12:25 Potassium 4.2 mmol/L (3.5-5.1) 07/10/18 12:25 Chloride 112 mmol/L (98-107) H 07/10/18 12:25 Carbon Dioxide 21.0 mmol/L (21.0-32.0) 07/10/18 12:25 Anion Gap 9 (5-15) 07/10/18 12:25 BUN 39 mg/dL (7-18) H 07/10/18 12:25 Creatinine 2.32 mg/dL (0.70-1.30) H 07/10/18 12:25 Est GFR (MDRD) Af Amer 35 mL/min (>60) L 07/10/18 12:25 Est GFR (MDRD) Non-Af 29 mL/min (>60) L 07/10/18 12:25 BUN/Creatinine Ratio 16.8 RATIO (10-20) 07/10/18 12:25 Glucose 123 mg/dL (74-106) H 07/10/18 12:25 Microbiology: Microbiology 07/10/18 18:45 Urine Catheter - Chahal Legionella Antigen - Final 07/10/18 18:45 Urine Catheter - Chahal Streptococcus pneumoniae Antigen (M - Final Weight used for dosin.1 kg Estimated Creatinine Clearance: 27.69 Goal Trough: 15-20 mcg/mL Pharmacy Plan for Drug Dosing: Pharmacy Service will continue to monitor and adjust dosing as required. Medications Vancomycin HCl 1,250 mg/ (Sodium Chloride) 275 mls @ 167 mls/hr IV Q24H KUSH Discontinued Medications Vancomycin HCl 1,750 mg/ (Sodium Chloride) 535 mls @ 250 mls/hr IV X1 ONE Stop: 07/10/18 18:08 Last Admin: 07/10/18 16:29 Dose: 250 mls/hr Follow-Up Labs: Trough Vancomycin Labs to be done on [date and time ordered]: 07/12 @ 1600
[2018-07-10] MEDS: Morphine 2 MG/ML Syringe IV (21:17)
[2018-07-10] MEDS: 0.9% NaCl Peripheral Flush Adult/Peds IV (21:17)
[2018-07-10] MEDS: 0.9% Normal Saline 1,000 ML 125 ML IV (21:20)
--- NOTE | 2018-07-10 21:41 | CPS ---
Patient refusing BiPAP on floor. BiPAP order will be kept in, but no BiPAP in room. Patient will be monitored at night.
[2018-07-11] VITALS (14 sets, daily range): BP systolic 95–119; BP diastolic 55–71; PULSE 85–98; RESP 18–26; TEMP 36.7–37; O2SAT 93–99
--- NOTE | 2018-07-11 00:29 | NURSING ---
Bladder scanned patient d/t frequent c/o feeling like he needed to void despite reorienting that he had a catheter inserted. Bladder scanned for 30cc. Will monitor.
[2018-07-11] MEDS: Haloperidol Lactate 5 MG/ML Vial 2 MG IV (05:08)
[2018-07-11] MEDS: 0.9% Normal Saline 1,000 ML 125 ML IV ×2 (05:09→14:00)
[2018-07-11 06:29] LABS: Prothrombin Time (Protime)PT. 84.4 SECONDS (11.7-14.9)
[2018-07-11 06:30] LABS: Basophil# 0.03 X10^3/uL; Basophil% 0.4 % (0-1); Eosinophil# 0.06 X10^3/uL; Eosinophils% 0.9 % (0-5); Hematocrit 34.3 % (40-54); Hemoglobin 11.1 g/dl (13.0-16.5); Lymphocyte % 15.7 % (19-41); Mean Corp Hgb Conc 32.4 g/gl (32-36); Mean Corpuscular Volume 98.8 fL (80-94); Mean Platelet Vol. 12.5 fl (6.2-12.0); Monocyte% 11.4 % (0-10); Neutrophil # 5.02 X10^3/uL (2.7-7.7); Neutrophil % 71.5 % (47-70); Platelet Count 170 K/mm3 (150-450); RBC Distribution Width CV 17.2 % (11.6-14.6); Red Blood Count 3.47 M/mm3 (4.6-6.2)
[2018-07-11 06:47] LABS: International Normalized Ratio 10.4
--- NOTE | 2018-07-11 06:48 | NURSING ---
Pts primary rn aware of pts inr of 10.4 at this time.
[2018-07-11 06:49] LABS: ALB/GLOB Ratio 0.6 RATIO (0.9-2.4); AST(SGOT) 761 U/L (15-37); Alanine Aminotransfer ALT/SGPT 637 U/L (16-61); Albumin, Serum 2.5 g/dL (3.2-5.0); Alkaline Phosphatase 105 U/L (45-117); Anion Gap 10 (5-15); BUN 42 mg/dL (7-18); BUN/Creat Ratio 17.1 RATIO (10-20); Calcium,Total 7.8 mg/dL (8.5-10.1); Chloride 116 mmol/L (98-107); Creatinine, Serum 2.46 mg/dL (0.70-1.30); EST Glomerular Filtration Rate 27 mL/min (>60); Est Glom Filt Rate - Afr Amer 33 mL/min (>60); Estimated Creatinine Clearance 28.42 ml/min; Glucose 126 mg/dL (74-106); POSITIVE COUNT NO; POSITIVE DIFFERENTIAL NO; POSITIVE MORPHOLOGY NO; Potassium 5.1 mmol/L (3.5-5.1); Protein, Total 6.5 g/dL (6.4-8.2); Sodium Level 145 mmol/L (136-145)
[2018-07-11 06:56] LABS: Bedside Glucose 136 mg/dL (70-110)
[2018-07-11] MEDS: Ipratropium/Albuterol Sulfate 3 ML AMPUL.NEB INHALATION ×3 (07:00→18:37)
[2018-07-11 07:48] LABS: Hemoglobin A1c 6.2 % (4.2-6.3)
--- NOTE | 2018-07-11 08:39 | US_ITS ---
STUDY: ULTRASOUND GALLBLADDER REASON FOR VISIT: Male, 83 years old. MEHUL TECHNIQUE: Ultrasound evaluation of the gallbladder was performed with real-time and static chavez-scale imaging. TECHNICAL QUALITY: Limited. Examination limited due to the patient?s condition. COMPARISON: None. FINDINGS: Gallbladder: Normal distended gallbladder. The gallbladder wall measures 2.9 mm. There is a negative sonographic Beavers's sign. There is no pericholecystic fluid. Focal echogenic rounded structure in the dependent portion of gallbladder may represent a sludge ball or nonshadowing stone. Common Bile Duct (C.B.D.): The common bile duct measures 3.2 mm. The liver is enlarged measuring 21 cm with diffusely heterogeneous echogenicity. US/Gallbladder IMPRESSION: 1. Solitary gallstone or tumefactive sludge ball. 2. No sonographic evidence of acute cholecystitis or biliary obstruction. 3. Hepatomegaly. Electronically Signed: Ayden Garcia MD at 11:20 EDT , Service support ,
[2018-07-11 12:01] LABS: Bedside Glucose 110 mg/dL (70-110)
--- NOTE | 2018-07-11 13:21 | PCM.PROGNOTE ---
<Susanna Xie - Last Filed: 07/11/18 13:27> Subjective: Patient seen and examined. Reports his breathing is about the same. Denies abdominal pain. Denies fever, chills. - Physical Exam General: Alert, Oriented x3, Cooperative, - - Fatigued/ill-appearing. HEENT: Atraumatic, PERRLA, EOMI, Normocephalic Oral: Dry Mucosa Neck: Supple, No JVD, Negative Carotid Bruits Lungs: Diminished, Rhonchi Cardiovascular: Regular rate, Regular Rhythm, Normal S1, Normal S2, No murmurs Abdomen: Bowel Sounds Present, Soft, Non Tender, Non-Distended, Obese Extremities: No clubbing, No cyanosis, No edema, Capillary Refill Less than 3 Seconds Skin: No rashes, No breakdown Musculoskeletal: No Tenderness to Palpation of Joints or Extremities Neurological: Cranial nerves II-XII grossly intact, Neuro grossly intact Psych/Mental Status: Flat Affect Vital Signs Temp Pulse Resp BP Pulse Ox 98.5 F 92 25 H 107/58 L 98 07/11/18 04:31 07/11/18 07:51 07/11/18 07:44 07/11/18 04:31 07/11/18 07:44 Oxygen Flow Rate (L/min) 3 Oxygen Delivery Method Nasal Cannula Weight: 245 lb Body Mass Index (BMI) 29.8 Intake and Output for Last 24 Hours 07/09/18 07/10/18 07/11/18 23:59 23:59 23:59 Intake Total 543 / 543 822.1 / 822.1 Output Total 150 / 150 100 / 100 Balance 393 / 393 722.1 / 722.1 Microbiology Past 72 Hours 07/10/18 18:45 Legionella Antigen - Final Urine Catheter - Chahal 07/10/18 18:45 Streptococcus pneumoniae Antigen (M - Final Urine Catheter - Chah[place] Laboratory Tests Past 24 Hrs 07/10/18 07/10/18 07/10/18 13:49 14:21 16:38 WBC RBC Hgb Hct MCV MCH MCHC RDW RDW Differential Plt Count MPV Immature Gran % (Auto) Neut % (Auto) Lymph % (Auto) [place] % (Auto) Eos % (Auto) Baso % (Auto) Absolute Neuts (auto) Absolute Lymphs (auto) Total Counted PT INR Specimen Type ART Sample Site R Radial pH 7.38 Bicarbonate Actual 19.7 L POC Total CO2 21 Base Excess -5 L O2 Saturation 99 O2 % 35 ABG pCO2 33.0 L ABG pO2 145 H Erasmo Test POS Respiration Rate 12 O2 Delivery Device Bi / C PAP EPAP 8 IPAP 12 Blood Gas Notified Whom ED Blood Gas Notified Time 1412 Sodium Potassium Chloride Carbon Dioxide Anion Gap BUN Creatinine Estim Creat Clear Calc Est GFR (MDRD) Af Amer Est GFR (MDRD) Non-Af BUN/Creatinine Ratio Glucose Hemoglobin A1c Lactic Acid Calcium Total Bilirubin AST ALT Alkaline Phosphatase Total Protein Albumin Globulin Albumin/Globulin Ratio Urine Color Yellow Urine Clarity Clear Urine pH 5.0 Ur Specific [place] 1.025 Urine Protein 30 H Urine Glucose (UA) Normal Urine Ketones 5 H Urine Occult Blood 50 H Urine Nitrite Negative Urine Bilirubin Negative Urine Urobilinogen 1 H Ur Leukocyte Esterase 25 H Urine RBC 0-5 SEEN Urine WBC 0 SEEN Ur Squamous Epith Cells 0 SEEN Urine Bacteria 0 SEEN Urine Mucus 0 SEEN Hepatitis A IgM Ab Pending Hep Bs Antigen Pending Hep B Core IgM Ab Pending Hepatitis C Ab (EIA) Pending 07/10/18 07/11/18 07/11/18 17:27 05:30 05:30 WBC RBC Hgb Hct MCV MCH MCHC RDW RDW Differential Plt Count MPV Immature Gran % (Auto) Neut % (Auto) Lymph % (Auto) [place] % (Auto) Eos % (Auto) Baso % (Auto) Absolute Neuts (auto) Absolute Lymphs (auto) Total Counted PT 84.4 H INR 10.4 H* Specimen Type Sample Site pH Bicarbonate Actual POC Total CO2 Base Excess O2 Saturation O2 % ABG pCO2 ABG pO2 Erasmo Test Respiration Rate O2 Delivery Device EPAP IPAP Blood Gas Notified Whom Blood Gas Notified Time Sodium 145 Potassium 5.1 Chloride 116 H Carbon Dioxide 19.0 L Anion Gap 10 BUN 42 H Creatinine 2.46 H Estim Creat Clear Calc 28.42 Est GFR (MDRD) Af Amer 33 L Est GFR (MDRD) Non-Af 27 L BUN/Creatinine Ratio 17.1 Glucose 126 H Hemoglobin A1c Lactic Acid 2.1 H Calcium 7.8 L Total Bilirubin 1.20 H AST 761 H ALT 637 H Alkaline Phosphatase 105 Total Protein 6.5 Albumin 2.5 L Globulin 4.0 Albumin/Globulin Ratio 0.6 L Urine Color Urine Clarity Urine pH Ur Specific [place] Urine Protein Urine Glucose (UA) Urine Ketones Urine Occult Blood Urine Nitrite Urine Bilirubin Urine Urobilinogen Ur Leukocyte Esterase Urine RBC Urine WBC Ur Squamous Epith Cells Urine Bacteria Urine Mucus Hepatitis A IgM Ab Hep Bs Antigen Hep B Core IgM Ab Hepatitis C Ab (EIA) 07/11/18 07/11/18 05:30 05:30 WBC 7.0 RBC 3.47 L Hgb 11.1 L Hct 34.3 L MCV 98.8 H MCH 32.0 MCHC 32.4 RDW 17.2 H RDW Differential 60.0 H Plt Count 170 MPV 12.5 H Immature Gran % (Auto) 0.100 Neut % (Auto) 71.5 H Lymph % (Auto) 15.7 L [place] % (Auto) 11.4 H Eos % (Auto) 0.9 Baso % (Auto) 0.4 Absolute Neuts (auto) 5.0 Absolute Lymphs (auto) 1.10 Total Counted Not Reportable PT INR Specimen Type Sample Site pH Bicarbonate Actual POC Total CO2 Base Excess O2 Saturation O2 % ABG pCO2 ABG pO2 Erasmo Test Respiration Rate O2 Delivery Device EPAP IPAP Blood Gas Notified Whom Blood Gas Notified Time Sodium Potassium Chloride Carbon Dioxide Anion Gap BUN Creatinine Estim Creat Clear Calc Est GFR (MDRD) Af Amer Est GFR (MDRD) Non-Af BUN/Creatinine Ratio Glucose Hemoglobin A1c 6.2 Lactic Acid Calcium Total Bilirubin AST ALT Alkaline Phosphatase Total Protein Albumin Globulin Albumin/Globulin Ratio Urine Color Urine Clarity Urine pH Ur Specific [place] Urine Protein Urine Glucose (UA) Urine Ketones Urine Occult Blood Urine Nitrite Urine Bilirubin Urine Urobilinogen Ur Leukocyte Esterase Urine RBC Urine WBC Ur Squamous Epith Cells Urine Bacteria Urine Mucus Hepatitis A IgM Ab Hep Bs Antigen Hep B Core IgM Ab Hepatitis C Ab (EIA) POC Glucose 07/11/18 07/11/18 11:10 06:22 POC Glucose 110 136 H Medical Necessity - Tobacco Use Smoking Status: Never smoker Assessment/Plan All Active Problems (Last Reviewed 07/02/18 @ 10:42 by Wil Hart MD) B-cell lymphoma (Resolved) Status post stereotactic brain biopsy (Resolved) 1. Acute hypoxic respiratory failure secondary to healthcare associated pneumonia-chest x-ray admission with right lower lobe infiltrate, right upper lobe nodular density. Afebrile, no leukocytosis. Initially placed on BiPAP on admission, oxygen now stable on nasal cannula. Continue supplement oxygen to maintain O2 at or above 90%. IV vancomycin and IV Zosyn. Albuterol and DuoNeb aerosols. Send sputum for culture. Urine for strep and Legionella negative. Blood and urine cultures pending. 2. Permanent atrial fibrillation on chronic anticoagulation, complicated by supratherapeutic INR-hold Coumadin, trend INR. 3. Acute hepatitis, unclear etiology-CT of abdomen shows cholelithiasis without evidence of cholecystitis, otherwise no acute process. Hepatitis panel pending. Gallbladder ultrasound completed, report pending. Repeat LFTs in a.m. if not improved, will discuss transfer versus family wishes for aggressive treatment. 4. Acute kidney injury on chronic kidney disease stage III-suspect secondary to dehydration. IV fluids, trend BMP. 5. 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 Previously followed with Dr. Cho, currently in remission. 6. History of CVA-continue aspirin, statin. 7. Type 2 diabetes mellitus-does not appear to be on regimen. Accu-Cheks ACHS with sliding scale insulin. 8. GERD- continue PPI. 9. BPH-continue Flomax regimen. Chahal placed in ER. 10. Hyperlipidemia- continue statin. 11. Gout- continue allopurinol regimen. 12. Anxiety/depression-continue home bupropion, quetiapine. 13. Physical debility- Resides at SNF. PT/OT. DVT prophylaxis- SCDs Code status- DNRCCA This patient was seen by ALETHA Barajas under the supervision of Dr. Bradford. <Junaid Bradford F - Last Filed: 07/11/18 13:55> - Physical Exam Vital Signs Temp Pulse Resp BP Pulse Ox 98.5 F 92 25 H 107/58 L 98 07/11/18 04:31 07/11/18 07:51 07/11/18 07:44 07/11/18 04:31 07/11/18 07:44 Oxygen Flow Rate (L/min) 3 Oxygen Delivery Method Nasal Cannula Weight: 245 lb Body Mass Index (BMI) 29.8 Intake and Output for Last 24 Hours 07/09/18 07/10/18 07/11/18 23:59 23:59 23:59 Intake Total 543 / 543 822.1 / 822.1 Output Total 150 / 150 100 / 100 Balance 393 / 393 722.1 / 722.1 Microbiology Past 72 Hours 07/10/18 13:49 Urine Culture - Preliminary Urine, Catheterized Culture exhibits no growth. 07/10/18 18:45 Legionella Antigen - Final Urine Catheter - [place] 07/10/18 18:45 Streptococcus pneumoniae Antigen (M - Final Urine Catheter - [place] Laboratory Tests Past 24 Hrs 07/10/18 07/10/18 07/10/18 13:49 14:21 16:38 WBC RBC Hgb Hct MCV MCH MCHC RDW RDW Differential Plt Count MPV Immature Gran % (Auto) Neut % (Auto) Lymph % (Auto) [place] % (Auto) Eos % (Auto) Baso % (Auto) Absolute Neuts (auto) Absolute Lymphs (auto) Total Counted PT INR Specimen Type ART Sample Site R Radial pH 7.38 Bicarbonate Actual 19.7 L POC Total CO2 21 Base Excess -5 L O2 Saturation 99 O2 % 35 ABG pCO2 33.0 L ABG pO2 145 H Erasmo Test POS Respiration Rate 12 O2 Delivery Device Bi / C PAP EPAP 8 IPAP 12 Blood Gas Notified Whom ED Blood Gas Notified Time 1412 Sodium Potassium Chloride Carbon Dioxide Anion Gap BUN Creatinine Estim Creat Clear Calc Est GFR (MDRD) Af Amer Est GFR (MDRD) Non-Af BUN/Creatinine Ratio Glucose Hemoglobin A1c Lactic Acid Calcium Total Bilirubin AST ALT Alkaline Phosphatase Total Protein Albumin Globulin Albumin/Globulin Ratio Urine Color Yellow Urine Clarity Clear Urine pH 5.0 Ur Specific [place] 1.025 Urine Protein 30 H Urine Glucose (UA) Normal Urine Ketones 5 H Urine Occult Blood 50 H Urine Nitrite Negative Urine Bilirubin Negative Urine Urobilinogen 1 H Ur Leukocyte Esterase 25 H Urine RBC 0-5 SEEN Urine WBC 0 SEEN Ur Squamous Epith Cells 0 SEEN Urine Bacteria 0 SEEN Urine Mucus 0 SEEN Hepatitis A IgM Ab Pending Hep Bs Antigen Pending Hep B Core IgM Ab Pending Hepatitis C Ab (EIA) Pending 07/10/18 07/11/18 07/11/18 17:27 05:30 05:30 WBC RBC Hgb Hct MCV MCH MCHC RDW RDW Differential Plt Count MPV Immature Gran % (Auto) Neut % (Auto) Lymph % (Auto) [place] % (Auto) Eos % (Auto) Baso % (Auto) Absolute Neuts (auto) Absolute Lymphs (auto) Total Counted PT 84.4 H INR 10.4 H* Specimen Type Sample Site pH Bicarbonate Actual POC Total CO2 Base Excess O2 Saturation O2 % ABG pCO2 ABG pO2 Erasmo Test Respiration Rate O2 Delivery Device EPAP IPAP Blood Gas Notified Whom Blood Gas Notified Time Sodium 145 Potassium 5.1 Chloride 116 H Carbon Dioxide 19.0 L Anion Gap 10 BUN 42 H Creatinine 2.46 H Estim Creat Clear Calc 28.42 Est GFR (MDRD) Af Amer 33 L Est GFR (MDRD) Non-Af 27 L BUN/Creatinine Ratio 17.1 Glucose 126 H Hemoglobin A1c Lactic Acid 2.1 H Calcium 7.8 L Total Bilirubin 1.20 H AST 761 H ALT 637 H Alkaline Phosphatase 105 Total Protein 6.5 Albumin 2.5 L Globulin 4.0 Albumin/Globulin Ratio 0.6 L Urine Color Urine Clarity Urine pH Ur Specific [place] Urine Protein Urine Glucose (UA) Urine Ketones Urine Occult Blood Urine Nitrite Urine Bilirubin Urine Urobilinogen Ur Leukocyte Esterase Urine RBC Urine WBC Ur Squamous Epith Cells Urine Bacteria Urine Mucus Hepatitis A IgM Ab Hep Bs Antigen Hep B Core IgM Ab Hepatitis C Ab (EIA) 07/11/18 07/11/18 05:30 05:30 WBC 7.0 RBC 3.47 L Hgb 11.1 L Hct 34.3 L MCV 98.8 H MCH 32.0 MCHC 32.4 RDW 17.2 H RDW Differential 60.0 H Plt Count 170 MPV 12.5 H Immature Gran % (Auto) 0.100 Neut % (Auto) 71.5 H Lymph % (Auto) 15.7 L [place] % (Auto) 11.4 H Eos % (Auto) 0.9 Baso % (Auto) 0.4 Absolute Neuts (auto) 5.0 Absolute Lymphs (auto) 1.10 Total Counted Not Reportable PT INR Specimen Type Sample Site pH Bicarbonate Actual POC Total CO2 Base Excess O2 Saturation O2 % ABG pCO2 ABG pO2 Erasmo Test Respiration Rate O2 Delivery Device EPAP IPAP Blood Gas Notified Whom Blood Gas Notified Time Sodium Potassium Chloride Carbon Dioxide Anion Gap BUN Creatinine Estim Creat Clear Calc Est GFR (MDRD) Af Amer Est GFR (MDRD) Non-Af BUN/Creatinine Ratio Glucose Hemoglobin A1c 6.2 Lactic Acid Calcium Total Bilirubin AST ALT Alkaline Phosphatase Total Protein Albumin Globulin Albumin/Globulin Ratio Urine Color Urine Clarity Urine pH Ur Specific [place] Urine Protein Urine Glucose (UA) Urine Ketones Urine Occult Blood Urine Nitrite Urine Bilirubin Urine Urobilinogen Ur Leukocyte Esterase Urine RBC Urine WBC Ur Squamous Epith Cells Urine Bacteria Urine Mucus Hepatitis A IgM Ab Hep Bs Antigen Hep B Core IgM Ab Hepatitis C Ab (EIA) POC Glucose 07/11/18 07/11/18 11:10 06:22 POC Glucose 110 136 H Code Visit Addendum: Dr. Bradford I personally examined the patient and reviewed the chart. I agree with the above. 83-year-old male resident [facility] presenting with cough and shortness of breath as well as mild abdominal pain he was started on Augmentin 2 days prior to admission for pneumonia however he was transferred to the ER for worsening shortness of breath. On admission CT scan of the abdomen pelvis did not show anything acute, he did have cholestasis but nothing to indicate cholecystitis. He did have elevated liver enzymes on admission which did worsen today as did his total bilirubin. Chest x-ray showed a right lower lobe consolidation. He had an emergent gallbladder ultrasound which is still pending a read, the liver measures big and the common bile duct was normal size but there was sludge without wall thickening. At the moment we will continue with Zosyn and vancomycin and IV fluids. Depending on what happens over the next 24 hours we will discuss with the family options including transfer to a tertiary care center if they would prefer to proceed with aggressive intervention or possible comfort measures only if he does not improve. Inpatient E&M: 85607 Subs Hosp L2
[2018-07-11] MEDS: Glucerna Shake 120 ML LIQUID PO ×2 (14:50→17:11)
[2018-07-11 17:11] LABS: Bedside Glucose 112 mg/dL (70-110)
[2018-07-11] MEDS: guaiFENesin 10 ML UDC (200MG/10ML) PO (17:46)
[2018-07-11] MEDS: traZODone 50 MG Tablet PO (20:05)
[2018-07-11 22:05] LABS: Bedside Glucose 109 mg/dL (70-110)
[2018-07-12] VITALS (14 sets, daily range): BP systolic 107–119; BP diastolic 59–76; PULSE 78–95; RESP 16–30; TEMP 36.1–36.4; O2SAT 94–97
[2018-07-12] MEDS: 0.9% Normal Saline 1,000 ML 125 ML IV ×3 (02:20→16:20)
[2018-07-12 06:26] LABS: Hematocrit 35.8 % (40-54); Hemoglobin 11.4 g/dl (13.0-16.5); Mean Corp Hgb Conc 31.8 g/gl (32-36); Mean Corpuscular Hgb 31.7 pg (27.0-32.0); Mean Corpuscular Volume 99.4 fL (80-94); Mean Platelet Vol. 12.9 fl (6.2-12.0); Platelet Count 147 K/mm3 (150-450); RBC Distribution Width CV 17.2 % (11.6-14.6); RBC Distribution Width SD 59.5 fl (35.1-43.9); White Blood Count 8.5 K/mm3 (4.4-11.0)
[2018-07-12 06:38] LABS: Prothrombin Time (Protime)PT. 48.8 SECONDS (11.7-14.9)
[2018-07-12 06:47] LABS: International Normalized Ratio 5.2
[2018-07-12] MEDS: Ipratropium/Albuterol Sulfate 3 ML AMPUL.NEB INHALATION ×4 (06:48→19:12)
[2018-07-12 07:00] LABS: Bedside Glucose 78 mg/dL (70-110)
[2018-07-12 07:00] LABS: Scan Indicated on CBC? Y/N NO
[2018-07-12 07:05] LABS: ALB/GLOB Ratio 0.7 RATIO (0.9-2.4); AST(SGOT) 2401 U/L (15-37); Alanine Aminotransfer ALT/SGPT 1727 U/L (16-61); Albumin, Serum 2.6 g/dL (3.2-5.0); Alkaline Phosphatase 115 U/L (45-117); Anion Gap 15 (5-15); BUN 52 mg/dL (7-18); BUN/Creat Ratio 17.5 RATIO (10-20); Calcium,Total 7.8 mg/dL (8.5-10.1); Chloride 115 mmol/L (98-107); Creatinine, Serum 2.97 mg/dL (0.70-1.30); EST Glomerular Filtration Rate 22 mL/min (>60); Est Glom Filt Rate - Afr Amer 26 mL/min (>60); Estimated Creatinine Clearance 23.54 ml/min; Globulin 3.7 g/dL (2.2-4.2); Glucose 82 mg/dL (74-106); Potassium 5.7 mmol/L (3.5-5.1); Protein, Total 6.3 g/dL (6.4-8.2); Sodium Level 145 mmol/L (136-145)
[2018-07-12] MEDS: Loratadine 10 MG Tablet PO (09:12)
--- NOTE | 2018-07-12 12:12 | PCM.PN.HOSP ---
Subjective: He seems to be about the same since admission. He denies any abdominal pain today and is off of oxygen Vitals/I&O's: Vital Signs Temp Pulse Resp BP Pulse Ox 97 F L 84 18 107/64 94 07/12/18 09:10 07/12/18 09:10 07/12/18 09:10 07/12/18 09:10 07/12/18 09:10 Oxygen Flow Rate (L/min) 2 Oxygen Delivery Method Room Air Weight: 244 lb 15.995 oz Body Mass Index (BMI) 29.8 Intake and Output for Last 24 Hours 07/10/18 07/11/18 07/12/18 23:59 23:59 23:59 Intake Total 543 / 543 1542.1 / 1542.1 3226 / 3226 Output Total 150 / 150 200 / 200 200 / 200 Balance 393 / 393 1342.1 / 1342.1 3026 / 3026 General: Alert, Oriented x3, Cooperative, sleepy. HEENT: Atraumatic, PERRLA, Normocephalic Oral: Dry Mucosa Neck: Supple, No JVD Lungs: Diminished, Rhonchi no wheezes or rails Cardiovascular: Regular rate, Regular Rhythm, Normal S1, Normal S2, No murmurs Abdomen: Soft, Non Tender, Non-Distended, Obese Extremities: No clubbing, No cyanosis, No edema, Capillary Refill Less than 3 Seconds Skin: No rashes, No breakdown Neurological: Cranial nerves II-XII grossly intact, Neuro grossly intact Psych/Mental Status: Flat Affect Microbiology Past 72 Hours 07/10/18 18:45 Swab (Method) Nasal Screen MRSA/MSSA - Final 07/10/18 13:49 Urine, Catheterized Urine Culture - Preliminary Culture exhibits no growth. 07/10/18 18:45 Urine Catheter - [place] Legionella Antigen - Final 07/10/18 18:45 Urine Catheter - [place] Streptococcus pneumoniae Antigen (M - Final Laboratory Results 07/11/18 16:59: POC Glucose 112 H 07/11/18 21:14: POC Glucose 109 07/12/18 05:55: WBC 8.5, RBC 3.60 L, Hgb 11.4 L, Hct 35.8 L, MCV 99.4 H, MCH 31.7, MCHC 31.8 L, RDW 17.2 H, RDW Differential 59.5 H, Plt Count 147 L, MPV 12.9 H 07/12/18 05:55: PT 48.8 H, INR 5.2 H* 07/12/18 05:55: Sodium 145, Potassium 5.7 H, Chloride 115 H, Carbon Dioxide 15.0 L, Anion Gap 15, BUN 52 H, Creatinine 2.97 H, Estim Creat Clear Calc 23.54, Est GFR (MDRD) Af Amer 26 L, Est GFR (MDRD) Non-Af 22 L, BUN/Creatinine Ratio 17.5, Glucose 82, Calcium 7.8 L, Total Bilirubin 1.60 H, AST 2401 H, ALT 1727 H, Alkaline Phosphatase 115, Total Protein 6.3 L, Albumin 2.6 L, Globulin 3.7, Albumin/Globulin Ratio 0.7 L 07/12/18 06:43: POC Glucose 78 Current Medications Albuterol Sulfate (Ventolin Aerosols) 2.5 mg INHALATION Q2H PRN PRN PRN Reason: SHORTNESS OF BREATH Albuterol/Ipratropium (Duoneb) 3 ml INHALATION Q4HWA.RT [facility] Last Admin: 07/12/18 11:06 Dose: 3 ml Dextrose (D50w Syringe) 0 gm IV X1 PRN; Protocol PRN Reason: Hypoglycemia Glucagon () 1 mg IM .X1 PRN PRN Reason: Hypoglycemia Guaifenesin (Robitussin) 10 ml PO Q4H PRN PRN PRN Reason: COUGH Last Admin: 07/11/18 17:46 Dose: 10 ml Hydrocortisone Acetate (Anusol Hc) 25 mg RECTAL BID PRN PRN PRN Reason: HEMORRHOIDS Sodium Chloride () 1,000 mls @ 125 mls/hr IV .Q8H [facility] Last Admin: 07/12/18 09:11 Dose: 125 mls/hr Piperacillin Sod/Tazobactam (Sod 3.375 gm/ Sodium Chloride) 50 mls @ 12.5 mls/hr IV Q8 [facility] Last Admin: 07/12/18 05:00 Dose: 12.5 mls/hr Vancomycin IV Pharmacy to Dose (1 ea/ Sodium Chloride) 500 mls @ 250 mls/hr IV X1 PRN; Protocol PRN Reason: Rx to Dose Vancomycin HCl 1,250 mg/ (Sodium Chloride) 275 mls @ 167 mls/hr IV Q24H [facility] Last Admin: 07/11/18 17:46 Dose: 167 mls/hr Insulin Human Lispro (Humalog Kwikpen (Bkc)) 0 unit SQ ACHS [facility]; Protocol Last Admin: 07/12/18 06:44 Dose: Not Given Loratadine (Claritin) 10 mg PO DAILY [facility] Last Admin: 07/12/18 09:12 Dose: 10 mg Morphine Sulfate () 2 mg IV Q3H PRN PRN PRN Reason: SEVERE PAIN (6-10/10) Last Admin: 07/10/18 21:17 Dose: 2 mg Nutritional Formula (Lactose Free) (Glucerna Shake) 120 ml PO 4X/DAY [facility] Last Admin: 07/12/18 09:12 Dose: Not Given Ondansetron HCl (Zofran) 4 mg IV Q8H PRN PRN PRN Reason: NAUSEA/VOMITING Promethazine HCl (Phenergan) 25 mg IV Q4H PRN PRN PRN Reason: NAUSEA/VOMITING Sodium Chloride () 5 - 15 ml IV UD PRN PRN Reason: SALINE FLUSH Last Admin: 07/10/18 21:17 Dose: 10 ml Medical Necessity - Tobacco Use Smoking Status: Never smoker Assessment/Plan All Active Problems (Last Reviewed 07/02/18 @ 10:42 by Wil Hart MD) B-cell lymphoma (Resolved) Status post stereotactic brain biopsy (Resolved) 1. Acute hypoxic respiratory failure secondary to healthcare associated pneumonia - currently on room air and doing well -Continue with aerosols -Continue with Zosyn and will discontinue the vancomycin since his MRSA screen is negative -urine cultures and blood cultures are negative -Urine Legionella and strep antigens were negative 2. Acute hepatitis/acute kidney injury/chronic kidney disease stage III -The etiology of his hepatitis is unclear -He is afebrile and does not complain of right upper quadrant abdominal pain -Viral hepatitis panel is pending -LFTs today have significantly increased and I had a discussion with the family for 25 minutes about goals of care and advanced care planning. They would like to discuss with hospice as terms to what can be offered both inpatient and outpatient. They would like to keep him here 1 more day to see if his LFTs improve and then will decide tomorrow on whether or not they would either like for transfer to a tertiary care center or to proceed with hospice and comfort management. -Continue with IV fluids and monitor renal function -Gallbladder ultrasound was read as no cholecystitis 3. DM 2 -Monitor with Accu-Cheks and sliding scale insulin -He seems to be diet controlled as an outpatient 4. Permanent A. fib/mechanical mitral valve repair/HTN/HLD -Coumadin is on hold secondary to therapeutic INR -Currently 5.2 will monitor -We will hold his blood pressure medications secondary to hypotension -Can continue with statin 5. GERD -Stable -Continue with PPI 6. BPH -Continue with Flomax -He has a Chahal that was placed in the ER 7. Anxiety/depression -Stable -Continue with his home medications of Wellbutrin and Seroquel 8. Gout -Stable -Continue with allopurinol DVT: Supratherapeutic INR Code Visit Inpatient E&M: 92963 Subs Hosp L2 Procedures: 11588 Advncd Care Plan 30 Min
--- NOTE | 2018-07-12 12:23 | PN_ITS ---
Subjective: He seems to be about the same since admission. He denies any abdominal pain today and is off of oxygen Vitals/I&O's: Vital Signs Temp Pulse Resp BP Pulse Ox 97 F L 84 18 107/64 94 07/12/18 09:10 07/12/18 09:10 07/12/18 09:10 07/12/18 09:10 07/12/18 09:10 Oxygen Flow Rate (L/min) 2 Oxygen Delivery Method Room Air Weight: 244 lb 15.995 oz Body Mass Index (BMI) 29.8 Intake and Output for Last 24 Hours 07/10/18 07/11/18 07/12/18 23:59 23:59 23:59 Intake Total 543 / 543 1542.1 / 1542.1 3226 / 3226 Output Total 150 / 150 200 / 200 200 / 200 Balance 393 / 393 1342.1 / 1342.1 3026 / 3026 General: Alert, Oriented x3, Cooperative, sleepy. HEENT: Atraumatic, PERRLA, Normocephalic Oral: Dry Mucosa Neck: Supple, No JVD Lungs: Diminished, Rhonchi no wheezes or rails Cardiovascular: Regular rate, Regular Rhythm, Normal S1, Normal S2, No murmurs Abdomen: Soft, Non Tender, Non-Distended, Obese Extremities: No clubbing, No cyanosis, No edema, Capillary Refill Less than 3 Seconds Skin: No rashes, No breakdown Neurological: Cranial nerves II-XII grossly intact, Neuro grossly intact Psych/Mental Status: Flat Affect Microbiology Past 72 Hours 07/10/18 18:45 Swab (Method) Nasal Screen MRSA/MSSA - Final 07/10/18 13:49 Urine, Catheterized Urine Culture - Preliminary Culture exhibits no growth. 07/10/18 18:45 Urine Catheter - Chahal Legionella Antigen - Final 07/10/18 18:45 Urine Catheter - Ch[place]al Streptococcus pneumoniae Antigen (M - Final Laboratory Results 07/11/18 16:59: POC Glucose 112 H 07/11/18 21:14: POC Glucose 109 07/12/18 05:55: WBC 8.5, RBC 3.60 L, Hgb 11.4 L, Hct 35.8 L, MCV 99.4 H, MCH 31.7, MCHC 31.8 L, RDW 17.2 H, RDW Differential 59.5 H, Plt Count 147 L, MPV 12.9 H 07/12/18 05:55: PT 48.8 H, INR 5.2 H* 07/12/18 05:55: Sodium 145, Potassium 5.7 H, Chloride 115 H, Carbon Dioxide 15.0 L, Anion Gap 15, BUN 52 H, Creatinine 2.97 H, Estim Creat Clear Calc 23.54, Est GFR (MDRD) Af Amer 26 L, Est GFR (MDRD) Non-Af 22 L, BUN/Creatinine Ratio 17.5, Glucose 82, Calcium 7.8 L, Total Bilirubin 1.60 H, AST 2401 H, ALT 1727 H, Alkaline Phosphatase 115, Total Protein 6.3 L, Albumin 2.6 L, Globulin 3.7, Albumin/Globulin Ratio 0.7 L 07/12/18 06:43: POC Glucose 78 Current Medications Albuterol Sulfate (Ventolin Aerosols) 2.5 mg INHALATION Q2H PRN PRN PRN Reason: SHORTNESS OF BREATH Albuterol/Ipratropium (Duoneb) 3 ml INHALATION Q4HWA.RT [facility] Last Admin: 07/12/18 11:06 Dose: 3 ml Dextrose (D50w Syringe) 0 gm IV X1 PRN; Protocol PRN Reason: Hypoglycemia Glucagon () 1 mg IM .X1 PRN PRN Reason: Hypoglycemia Guaifenesin (Robitussin) 10 ml PO Q4H PRN PRN PRN Reason: COUGH Last Admin: 07/11/18 17:46 Dose: 10 ml Hydrocortisone Acetate (Anusol Hc) 25 mg RECTAL BID PRN PRN PRN Reason: HEMORRHOIDS Sodium Chloride () 1,000 mls @ 125 mls/hr IV .Q8H [facility] Last Admin: 07/12/18 09:11 Dose: 125 mls/hr Piperacillin Sod/Tazobactam (Sod 3.375 gm/ Sodium Chloride) 50 mls @ 12.5 mls/hr IV Q8 [facility] Last Admin: 07/12/18 05:00 Dose: 12.5 mls/hr Vancomycin IV Pharmacy to Dose (1 ea/ Sodium Chloride) 500 mls @ 250 mls/hr IV X1 PRN; Protocol PRN Reason: Rx to Dose Vancomycin HCl 1,250 mg/ (Sodium Chloride) 275 mls @ 167 mls/hr IV Q24H [facility] Last Admin: 07/11/18 17:46 Dose: 167 mls/hr Insulin Human Lispro (Humalog Kwikpen (Bkc)) 0 unit SQ ACHS [facility]; Protocol Last Admin: 07/12/18 06:44 Dose: Not Given Loratadine (Claritin) 10 mg PO DAILY [facility] Last Admin: 07/12/18 09:12 Dose: 10 mg Morphine Sulfate () 2 mg IV Q3H PRN PRN PRN Reason: SEVERE PAIN (6-10/10) Last Admin: 07/10/18 21:17 Dose: 2 mg Nutritional Formula (Lactose Free) (Glucerna Shake) 120 ml PO 4X/DAY [facility] Last Admin: 07/12/18 09:12 Dose: Not Given Ondansetron HCl (Zofran) 4 mg IV Q8H PRN PRN PRN Reason: NAUSEA/VOMITING Promethazine HCl (Phenergan) 25 mg IV Q4H PRN PRN PRN Reason: NAUSEA/VOMITING Sodium Chloride () 5 - 15 ml IV UD PRN PRN Reason: SALINE FLUSH Last Admin: 07/10/18 21:17 Dose: 10 ml Medical Necessity - Tobacco Use Smoking Status: Never smoker Assessment/Plan All Active Problems (Last Reviewed 07/02/18 @ 10:42 by Wil Hart MD) B-cell lymphoma (Resolved) Status post stereotactic brain biopsy (Resolved) 1. Acute hypoxic respiratory failure secondary to healthcare associated pneumonia - currently on room air and doing well -Continue with aerosols -Continue with Zosyn and will discontinue the vancomycin since his MRSA screen is negative -urine cultures and blood cultures are negative -Urine Legionella and strep antigens were negative 2. Acute hepatitis/acute kidney injury/chronic kidney disease stage III -The etiology of his hepatitis is unclear -He is afebrile and does not complain of right upper quadrant abdominal pain -Viral hepatitis panel is pending -LFTs today have significantly increased and I had a discussion with the family for 25 minutes about goals of care and advanced care planning. They would like to discuss with hospice as terms to what can be offered both inpatient and outpatient. They would like to keep him here 1 more day to see if his LFTs improve and then will decide tomorrow on whether or not they would either like for transfer to a tertiary care center or to proceed with hospice and comfort management. -Continue with IV fluids and monitor renal function -Gallbladder ultrasound was read as no cholecystitis 3. DM 2 -Monitor with Accu-Cheks and sliding scale insulin -He seems to be diet controlled as an outpatient 4. Permanent A. fib/mechanical mitral valve repair/HTN/HLD -Coumadin is on hold secondary to therapeutic INR -Currently 5.2 will monitor -We will hold his blood pressure medications secondary to hypotension -Can continue with statin 5. GERD -Stable -Continue with PPI 6. BPH -Continue with Flomax -He has a Chahal that was placed in the ER 7. Anxiety/depression -Stable -Continue with his home medications of Wellbutrin and Seroquel 8. Gout -Stable -Continue with allopurinol DVT: Supratherapeutic INR Code Visit Inpatient E&M: 69980 Subs Hosp L2 Procedures: 69397 Advncd Care Plan 30 Min
[2018-07-12 12:30] LABS: Bedside Glucose 93 mg/dL (70-110)
[2018-07-12] MEDS: guaiFENesin 10 ML UDC (200MG/10ML) PO (14:03)
[2018-07-12 16:14] LABS: Vancomycin, Trough Level 16.8 ug/mL (5.0-15.0)
[2018-07-12 16:31] LABS: Bedside Glucose 104 mg/dL (70-110)
[2018-07-12] MEDS: Morphine 2 MG/ML Syringe IV (20:03)
[2018-07-12] MEDS: Glucerna Shake 120 ML LIQUID PO (22:56)
[2018-07-13] VITALS (8 sets, daily range): BP systolic 106–122; BP diastolic 67–72; PULSE 80–93; RESP 16–24; TEMP 36–36.8; O2SAT 92–96
[2018-07-13] MEDS: 0.9% Normal Saline 1,000 ML 125 ML IV (00:10)
[2018-07-13 00:16] LABS: Bedside Glucose 123 mg/dL (70-110)
[2018-07-13] MEDS: Morphine 2 MG/ML Syringe IV ×2 (01:01→12:11)
[2018-07-13] MEDS: 0.9% NaCl Peripheral Flush Adult/Peds IV ×3 (01:01→12:13)
[2018-07-13 06:31] LABS: Absolute Neutrophil Count 5.9 X10^3/uL (2.0-7.7); Basophil# 0.02 X10^3/uL; Basophil% 0.3 % (0-1); Eosinophil# 0.03 X10^3/uL; Eosinophils% 0.4 % (0-5); Hematocrit 35.5 % (40-54); Hemoglobin 11.4 g/dl (13.0-16.5); Lymphocyte % 14.1 % (19-41); Mean Corp Hgb Conc 32.1 g/gl (32-36); Mean Corpuscular Hgb 31.9 pg (27.0-32.0); Mean Corpuscular Volume 99.4 fL (80-94); Mean Platelet Vol. 12.8 fl (6.2-12.0); Monocyte# 0.77 X10^3/uL; Monocyte% 9.9 % (0-10); Neutrophil # 5.86 X10^3/uL (2.7-7.7); Platelet Count 127 K/mm3 (150-450); RBC Distribution Width CV 17.6 % (11.6-14.6); Red Blood Count 3.57 M/mm3 (4.6-6.2); White Blood Count 7.8 K/mm3 (4.4-11.0)
[2018-07-13 06:33] LABS: Absolute Nucleated RBC Count 0.16 10^3/uL (0-5); NRBC Flagged by Analyzer 2 % (0-5); POSITIVE COUNT NO; POSITIVE DIFFERENTIAL NO; POSITIVE MORPHOLOGY NO
[2018-07-13 06:56] LABS: Bedside Glucose 118 mg/dL (70-110)
[2018-07-13 07:02] LABS: ALB/GLOB Ratio 0.6 RATIO (0.9-2.4); AST(SGOT) 1673 U/L (15-37); Alanine Aminotransfer ALT/SGPT 1850 U/L (16-61); Albumin, Serum 2.4 g/dL (3.2-5.0); Alkaline Phosphatase 118 U/L (45-117); Anion Gap 11 (5-15); BUN 62 mg/dL (7-18); BUN/Creat Ratio 21.3 RATIO (10-20); Chloride 118 mmol/L (98-107); Creatinine, Serum 2.91 mg/dL (0.70-1.30); EST Glomerular Filtration Rate 22 mL/min (>60); Est Glom Filt Rate - Afr Amer 27 mL/min (>60); Estimated Creatinine Clearance 24.03 ml/min; Globulin 3.8 g/dL (2.2-4.2); Glucose 113 mg/dL (74-106); Potassium 5.1 mmol/L (3.5-5.1); Protein, Total 6.2 g/dL (6.4-8.2); Sodium Level 147 mmol/L (136-145)
[2018-07-13] MEDS: Ipratropium/Albuterol Sulfate 3 ML AMPUL.NEB INHALATION ×2 (07:09→14:43)
[2018-07-13] MEDS: 0.9% Normal Saline 1,000 ML 75 ML IV (07:49)
--- NOTE | 2018-07-13 08:03 | PCM.PN.HOSP ---
Subjective: States that he is feeling better, has easier time breathing. Denies any abdominal pain. Vitals/I&O's: Vital Signs Temp Pulse Resp BP Pulse Ox 96.8 F L 82 16 119/72 92 07/13/18 06:32 07/13/18 07:09 07/13/18 07:09 07/13/18 06:32 07/13/18 07:09 Oxygen Flow Rate (L/min) 2 Oxygen Delivery Method Room Air Weight: 244 lb 15.995 oz Body Mass Index (BMI) 29.8 Intake and Output for Last 24 Hours 07/11/18 07/12/18 07/13/18 23:59 23:59 23:59 Intake Total 1542.1 / 1542.1 5961.4 / 5961.4 873.1 / 873.1 Output Total 200 / 200 500 / 500 100 / 100 Balance 1342.1 / 1342.1 5461.4 / 5461.4 773.1 / 773.1 General: Alert, Oriented x3, Cooperative, sleepy. HEENT: Atraumatic, PERRLA, Normocephalic Oral: Dry Mucosa Neck: Supple, No JVD Lungs: Diminished, Rhonchi no wheezes or rails Cardiovascular: Regular rate, Regular Rhythm, Normal S1, Normal S2, No murmurs Abdomen: Soft, Non Tender, Non-Distended, Obese Extremities: No clubbing, No cyanosis, No edema, Capillary Refill Less than 3 Seconds Skin: No rashes, No breakdown Neurological: Cranial nerves II-XII grossly intact, Neuro grossly intact Psych/Mental Status: Flat Affect Microbiology Past 72 Hours 07/10/18 13:56 Blood Culture (Wb) - Left Wrist Blood Culture - Preliminary No growth in 48 hours. 07/10/18 12:25 Blood Culture (Wb) - Left Forearm Blood Culture - Preliminary No growth in 48 hours. 07/10/18 18:45 Swab (Method) Nasal Screen MRSA/MSSA - Final 07/10/18 13:49 Urine, Catheterized Urine Culture - Preliminary Culture exhibits no growth. 07/10/18 18:45 Urine Catheter - Chahal Legionella Antigen - Final 07/10/18 18:45 Urine Catheter - Ch[place] Streptococcus pneumoniae Antigen (M - Final Laboratory Results 07/12/18 12:22: POC Glucose 93 07/12/18 15:38: Vancomycin Trough 16.8 H 07/12/18 16:24: POC Glucose 104 07/12/18 23:00: POC Glucose 123 H 07/13/18 05:30: WBC 7.8, RBC 3.57 L, Hgb 11.4 L, Hct 35.5 L, MCV 99.4 H, MCH 31.9, MCHC 32.1, RDW 17.6 H, RDW Differential 62.0 H, Plt Count 127 L, MPV 12.8 H, Immature Gran % (Auto) 0.300, Neut % (Auto) 75.0 H, Lymph % (Auto) 14.1 L, [place] % (Auto) 9.9, Eos % (Auto) 0.4, Baso % (Auto) 0.3, Absolute Neuts (auto) 5.9, Absolute Lymphs (auto) 1.10, Total Counted Not Reportable, Nucleated RBC % 2, Diff Path Review June, Absolute Retic 0.16 07/13/18 05:30: Sodium 147 H, Potassium 5.1, Chloride 118 H, Carbon Dioxide 18.0 L, Anion Gap 11, BUN 62 H, Creatinine 2.91 H, Estim Creat Clear Calc 24.03, Est GFR (MDRD) Af Amer 27 L, Est GFR (MDRD) Non-Af 22 L, BUN/Creatinine Ratio 21.3 H, Glucose 113 H, Calcium 8.0 L, Total Bilirubin 1.50 H, AST 1673 H, ALT 1850 H, Alkaline Phosphatase 118 H, Total Protein 6.2 L, Albumin 2.4 L, Globulin 3.8, Albumin/Globulin Ratio 0.6 L 07/13/18 06:48: POC Glucose 118 H Current Medications Albuterol Sulfate (Ventolin Aerosols) 2.5 mg INHALATION Q2H PRN PRN PRN Reason: SHORTNESS OF BREATH Albuterol/Ipratropium (Duoneb) 3 ml INHALATION Q4HWA.RT [facility] Last Admin: 07/13/18 07:09 Dose: 3 ml Dextrose (D50w Syringe) 0 gm IV X1 PRN; Protocol PRN Reason: Hypoglycemia Glucagon () 1 mg IM .X1 PRN PRN Reason: Hypoglycemia Guaifenesin (Robitussin) 10 ml PO Q4H PRN PRN PRN Reason: COUGH Last Admin: 07/12/18 14:03 Dose: 10 ml Hydrocortisone Acetate (Anusol Hc) 25 mg RECTAL BID PRN PRN PRN Reason: HEMORRHOIDS Piperacillin Sod/Tazobactam (Sod 3.375 gm/ Sodium Chloride) 50 mls @ 12.5 mls/hr IV Q8 [facility] Last Admin: 07/13/18 05:32 Dose: 12.5 mls/hr Sodium Chloride () 1,000 mls @ 75 mls/hr IV .[id number] [facility] Last Admin: 07/13/18 07:49 Dose: 75 mls/hr Insulin Human Lispro (Humalog Kwikpen (Bkc)) 0 unit SQ ACHS [facility]; Protocol Last Admin: 07/13/18 06:49 Dose: Not Given Loratadine (Claritin) 10 mg PO DAILY [facility] Last Admin: 07/12/18 09:12 Dose: 10 mg Morphine Sulfate () 2 mg IV Q3H PRN PRN PRN Reason: SEVERE PAIN (6-10/10) Last Admin: 07/13/18 01:01 Dose: 2 mg Nutritional Formula (Lactose Free) (Glucerna Shake) 120 ml PO 4X/DAY [facility] Last Admin: 07/12/18 22:56 Dose: 120 ml Ondansetron HCl (Zofran) 4 mg IV Q8H PRN PRN PRN Reason: NAUSEA/VOMITING Promethazine HCl (Phenergan) 25 mg IV Q4H PRN PRN PRN Reason: NAUSEA/VOMITING Sodium Chloride () 5 - 15 ml IV UD PRN PRN Reason: SALINE FLUSH Last Admin: 07/13/18 05:32 Dose: 5 ml Medical Necessity - Tobacco Use Smoking Status: Never smoker Assessment/Plan All Active Problems (Last Reviewed 07/02/18 @ 10:42 by Wil Hart MD) B-cell lymphoma (Resolved) Status post stereotactic brain biopsy (Resolved) 1. Acute hypoxic respiratory failure secondary to healthcare associated pneumonia - currently on room air and doing well -Continue with aerosols -Continue with Zosyn, MRSA screen negative -urine cultures and blood cultures are negative -Urine Legionella and strep antigens were negative 2. Acute hepatitis/acute kidney injury/chronic kidney disease stage III -The etiology of his hepatitis is unclear -He is afebrile and does not complain of right upper quadrant abdominal pain -Viral hepatitis panel is pending -AST has decreased however ALT has increased slightly as has alk phos. -We will discuss further plan of care today with the family though it does appear to be that he is improving slightly. -Creatinine has also improved and therefore will decrease IV fluids 100 cc/h -Continue with IV fluids and monitor renal function -Gallbladder ultrasound was read as no cholecystitis 3. DM 2 -Monitor with Accu-Cheks and sliding scale insulin -He seems to be diet controlled as an outpatient 4. Permanent A. fib/mechanical mitral valve repair/HTN/HLD -Coumadin is on hold secondary to supratherapeutic INR - will monitor -We will hold his blood pressure medications secondary to hypotension -Can continue with statin 5. GERD -Stable -Continue with PPI 6. BPH -Continue with Flomax -He has a Chahal that was placed in the ER 7. Anxiety/depression -Stable -Continue with his home medications of Wellbutrin and Seroquel 8. Gout -Stable -Continue with allopurinol DVT: Supratherapeutic INR Code Visit Inpatient E&M: 53042 Subs Hosp L2
--- NOTE | 2018-07-13 08:08 | PN_ITS ---
Subjective: States that he is feeling better, has easier time breathing. Denies any abdominal pain. Vitals/I&O's: Vital Signs Temp Pulse Resp BP Pulse Ox 96.8 F L 82 16 119/72 92 07/13/18 06:32 07/13/18 07:09 07/13/18 07:09 07/13/18 06:32 07/13/18 07:09 Oxygen Flow Rate (L/min) 2 Oxygen Delivery Method Room Air Weight: 244 lb 15.995 oz Body Mass Index (BMI) 29.8 Intake and Output for Last 24 Hours 07/11/18 07/12/18 07/13/18 23:59 23:59 23:59 Intake Total 1542.1 / 1542.1 5961.4 / 5961.4 873.1 / 873.1 Output Total 200 / 200 500 / 500 100 / 100 Balance 1342.1 / 1342.1 5461.4 / 5461.4 773.1 / 773.1 General: Alert, Oriented x3, Cooperative, sleepy. HEENT: Atraumatic, PERRLA, Normocephalic Oral: Dry Mucosa Neck: Supple, No JVD Lungs: Diminished, Rhonchi no wheezes or rails Cardiovascular: Regular rate, Regular Rhythm, Normal S1, Normal S2, No murmurs Abdomen: Soft, Non Tender, Non-Distended, Obese Extremities: No clubbing, No cyanosis, No edema, Capillary Refill Less than 3 Seconds Skin: No rashes, No breakdown Neurological: Cranial nerves II-XII grossly intact, Neuro grossly intact Psych/Mental Status: Flat Affect Microbiology Past 72 Hours 07/10/18 13:56 Blood Culture (Wb) - Left Wrist Blood Culture - Preliminary No growth in 48 hours. 07/10/18 12:25 Blood Culture (Wb) - Left Forearm Blood Culture - Preliminary No growth in 48 hours. 07/10/18 18:45 Swab (Method) Nasal Screen MRSA/MSSA - Final 07/10/18 13:49 Urine, Catheterized Urine Culture - Preliminary Culture exhibits no growth. 07/10/18 18:45 Urine Catheter - Chahal Legionella Antigen - Final 07/10/18 18:45 Urine Catheter - Chahal Streptococcus pneumoniae Antigen (M - Final Laboratory Results 07/12/18 12:22: POC Glucose 93 07/12/18 15:38: Vancomycin Trough 16.8 H 07/12/18 16:24: POC Glucose 104 07/12/18 23:00: POC Glucose 123 H 07/13/18 05:30: WBC 7.8, RBC 3.57 L, Hgb 11.4 L, Hct 35.5 L, MCV 99.4 H, MCH 31.9, MCHC 32.1, RDW 17.6 H, RDW Differential 62.0 H, Plt Count 127 L, MPV 12.8 H, Immature Gran % (Auto) 0.300, Neut % (Auto) 75.0 H, Lymph % (Auto) 14.1 L, [place] % (Auto) 9.9, Eos % (Auto) 0.4, Baso % (Auto) 0.3, Absolute Neuts (auto) 5.9, Absolute Lymphs (auto) 1.10, Total Counted Not Reportable, Nucleated RBC % 2, Diff Path Review June, Absolute Retic 0.16 07/13/18 05:30: Sodium 147 H, Potassium 5.1, Chloride 118 H, Carbon Dioxide 18.0 L, Anion Gap 11, BUN 62 H, Creatinine 2.91 H, Estim Creat Clear Calc 24.03, Est GFR (MDRD) Af Amer 27 L, Est GFR (MDRD) Non-Af 22 L, BUN/Creatinine Ratio 21.3 H , Glucose 113 H, Calcium 8.0 L, Total Bilirubin 1.50 H, AST 1673 H, ALT 1850 H, Alkaline Phosphatase 118 H, Total Protein 6.2 L, Albumin 2.4 L, Globulin 3.8, Albumin/Globulin Ratio 0.6 L 07/13/18 06:48: POC Glucose 118 H Current Medications Albuterol Sulfate (Ventolin Aerosols) 2.5 mg INHALATION Q2H PRN PRN PRN Reason: SHORTNESS OF BREATH Albuterol/Ipratropium (Duoneb) 3 ml INHALATION Q4HWA.RT [facility] Last Admin: 07/13/18 07:09 Dose: 3 ml Dextrose (D50w Syringe) 0 gm IV X1 PRN; Protocol PRN Reason: Hypoglycemia Glucagon () 1 mg IM .X1 PRN PRN Reason: Hypoglycemia Guaifenesin (Robitussin) 10 ml PO Q4H PRN PRN PRN Reason: COUGH Last Admin: 07/12/18 14:03 Dose: 10 ml Hydrocortisone Acetate (Anusol Hc) 25 mg RECTAL BID PRN PRN PRN Reason: HEMORRHOIDS Piperacillin Sod/Tazobactam (Sod 3.375 gm/ Sodium Chloride) 50 mls @ 12.5 mls/hr IV Q8 [facility] Last Admin: 07/13/18 05:32 Dose: 12.5 mls/hr Sodium Chloride () 1,000 mls @ 75 mls/hr IV .[id number] [facility] Last Admin: 07/13/18 07:49 Dose: 75 mls/hr Insulin Human Lispro (Humalog Kwikpen (Bkc)) 0 unit SQ ACHS [facility]; Protocol Last Admin: 07/13/18 06:49 Dose: Not Given Loratadine (Claritin) 10 mg PO DAILY [facility] Last Admin: 07/12/18 09:12 Dose: 10 mg Morphine Sulfate () 2 mg IV Q3H PRN PRN PRN Reason: SEVERE PAIN (6-10/10) Last Admin: 07/13/18 01:01 Dose: 2 mg Nutritional Formula (Lactose Free) (Glucerna Shake) 120 ml PO 4X/DAY [facility] Last Admin: 07/12/18 22:56 Dose: 120 ml Ondansetron HCl (Zofran) 4 mg IV Q8H PRN PRN PRN Reason: NAUSEA/VOMITING Promethazine HCl (Phenergan) 25 mg IV Q4H PRN PRN PRN Reason: NAUSEA/VOMITING Sodium Chloride () 5 - 15 ml IV UD PRN PRN Reason: SALINE FLUSH Last Admin: 07/13/18 05:32 Dose: 5 ml Medical Necessity - Tobacco Use Smoking Status: Never smoker Assessment/Plan All Active Problems (Last Reviewed 07/02/18 @ 10:42 by Wil Hart MD) B-cell lymphoma (Resolved) Status post stereotactic brain biopsy (Resolved) 1. Acute hypoxic respiratory failure secondary to healthcare associated pneumonia - currently on room air and doing well -Continue with aerosols -Continue with Zosyn, MRSA screen negative -urine cultures and blood cultures are negative -Urine Legionella and strep antigens were negative 2. Acute hepatitis/acute kidney injury/chronic kidney disease stage III -The etiology of his hepatitis is unclear -He is afebrile and does not complain of right upper quadrant abdominal pain -Viral hepatitis panel is pending -AST has decreased however ALT has increased slightly as has alk phos. -We will discuss further plan of care today with the family though it does appear to be that he is improving slightly. -Creatinine has also improved and therefore will decrease IV fluids 100 cc/h -Continue with IV fluids and monitor renal function -Gallbladder ultrasound was read as no cholecystitis 3. DM 2 -Monitor with Accu-Cheks and sliding scale insulin -He seems to be diet controlled as an outpatient 4. Permanent A. fib/mechanical mitral valve repair/HTN/HLD -Coumadin is on hold secondary to supratherapeutic INR - will monitor -We will hold his blood pressure medications secondary to hypotension -Can continue with statin 5. GERD -Stable -Continue with PPI 6. BPH -Continue with Flomax -He has a Chahal that was placed in the ER 7. Anxiety/depression -Stable -Continue with his home medications of Wellbutrin and Seroquel 8. Gout -Stable -Continue with allopurinol DVT: Supratherapeutic INR Code Visit Inpatient E&M: 49452 Subs Hosp L2
[2018-07-13 09:10] LABS: International Normalized Ratio 4.1; Prothrombin Time (Protime)PT. 40.1 SECONDS (11.7-14.9)
--- NOTE | 2018-07-13 09:44 | CASEMGMT ---
LW/REYNA in [facility], SW printed, they are in paper chart. is POA, daughter is alternate. GEOFFREY Jalloh
--- NOTE | 2018-07-13 09:45 | CASEMGMT ---
Addendum entered by Gracie Noonan 07/13/18 12:07: SW spoke w/hospice, they will be here at 12:15 to see family. JAMIE let family know. GEOFFREY Jalloh Original Note: Addendum entered by Gracie Noonan 07/13/18 10:37: Physician spoke w/family, they would like to speak w/someone from hospice again in order to decide what they would like to do. SW called [facility], asked Miranda when someone may be able to come over to speak w/the family. Someone is to let this SW know when Alicia can come over to speak w/family, likely about 12pm. SW let family know that hospice will likely be there about 12pm. SW offered support to family, will continue to follow. GEOFFREY Jalloh Original Note: SW spoke w/battery charger conveyor line, hospice was consulted yesterday. SW spoke w/[place] at [facility], she states family wanted to know about labs before making a decision regarding hospice, plan likely for pt to return to [facility] private pay where pt has been for three years, or to in unit either private pay or if he qualifies under Medicare. SW spoke w/daughter in room, she states pt's will be here shortly, they would like to speak w/physician regarding labs before making a decision on hospice. SW explained will page the doctor. SW texted physician to let him know family is here and would like to speak w/him regarding labs before making a decision on hospice. SW will continue to follow. GEOFFREY Jalloh
[2018-07-13] MEDS: Loratadine 10 MG Tablet PO (09:57)
[2018-07-13 11:15] LABS: Bedside Glucose 129 mg/dL (70-110)
[2018-07-13] MEDS: Glucerna Shake 120 ML LIQUID PO (11:25)
--- NOTE | 2018-07-13 14:04 | DCINST_ITS ---
You will use the following diet at home:: No restrictions Your liquids should be the consistency of: [place] Thick Discharge Activity: Return to Normal Activity, No Restrictions Allergies/Adverse Reactions: Allergies levofloxacin Allergy (Verified 07/10/18 12:22) Unknown simvastatin [From Zocor] Allergy (Verified 07/10/18 12:22) Unknown heparin Adverse Reaction (Verified 07/10/18 12:22) Low platelets Medications to take at Discharge Ondansetron [Zofran] 4 mg PO Q6H PRN PRN 05/14/15 Polyethylene Glycol 3350 [Miralax] 17 gm PO DAILY 05/14/15 Sennosides/Docusate Sodium [Senna-Docusate Sodium Tablet] 1 ea PO BID 05/14/15 Allopurinol [Zyloprim] 100 mg PO DAILYCM #0 tab 06/24/15 Famotidine [Pepcid] 20 mg PO DAILY #0 tab 06/24/15 Bisacodyl 10 mg RC PRN PRN 08/17/17 Guaifenesin [Robitussin] 10 ml PO Q4H PRN PRN 08/17/17 Hydrocortisone [Anusol Hc] 25 mg RECTAL BID PRN PRN 08/17/17 Magnesium Hydroxide [Milk Of Magnesia] 30 ml PO DAILY PRN PRN 08/17/17 Magnesium Oxide [Magnesium] 400 mg PO QHS 08/17/17 Melatonin 2 mg PO QHS 08/17/17 Menthol [Biofreeze] 1 applic TP Q2H PRN PRN 08/17/17 Midodrine HCl [Proamatine] 2.5 mg PO TID 08/17/17 Mineral Oil/Petrolatum,White [Eucerin] 1 applic TOPICAL DAILY PRN PRN 08/17/17 Na Phos,M-B/Na Phos,Di-Ba [Fleet Enema] 120 ml RECTAL PRN PRN 08/17/17 Tamsulosin HCl [Flomax] 0.4 mg PO DAILY@1730 08/17/17 Warfarin [Coumadin (PBKC)] 5 mg PO SUTUTHSA 08/17/17 Warfarin [Coumadin] 2.5 mg PO MOWEFR 08/17/17 buPROPion XL [Wellbutrin Xl] 300 mg PO DAILY 08/17/17 acetaminophen 650 mg rectal suppository 650 mg RC Q4H PRN PRN 07/01/18 aluminum-magnesium hydroxide 200 mg-200 mg/5 mL oral suspension 30 ml PO Q4H PRN ml 07/01/18 artificial tears (hypromellose) (PF) 0.3 % eye drops 2 drp OPHTHALMIC 4-8XD 07/01/18 loratadine 10 mg tablet 10 mg PO DAILY 07/01/18 polysaccharide iron complex 150 mg iron capsule 150 mg PO DAILY cap 07/01/18 quetiapine 25 mg tablet 25 mg PO BID 07/01/18 Acetaminophen [Tylenol Tablet] 650 mg PO Q4H PRN PRN 07/10/18 Amoxicillin/Potassium Clav [Augmentin 875-125 Tablet] 1 each PO BID 07/10/18 Aspirin [Aspir-Low] 81 mg PO DAILY 07/10/18 Atorvastatin Calcium [Lipitor] 40 mg PO QHS 07/10/18 Primary Care Physician: Alpesh Edgar III, MD [Primary Care Provider] - Test Results: Test results from this visit will be discussed in further detail at your follow- up appointment, if applicable.
--- NOTE | 2018-07-13 14:10 | DS.PCM_ITS ---
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 No acute inflammatory process or bowel obstruction. 2. Cholelithiasis without CT evidence of cholecystitis. 3. Probable postradiation or postsurgical changes of the presacral pelvis. No focal mass or fluid collection. 4. Chahal catheter. CT Brain: IMPRESSION: 1. No acute intracranial hemorrhage or mass effect. 2. Central parenchymal volume loss. White matter changes that are nonspecific but most commonly associated with chronic small vessel ischemic disease. US Gallbladder: IMPRESSION: 1. Solitary gallstone or tumefactive sludge ball. 2. No sonographic evidence of acute cholecystitis or biliary obstruction. 3. Hepatomegaly. Operations: None Procedures: None Summary of Care Provided: Per HPI: The patient is a 83 year old M who presents from [facility] to emergency room due to shortness of breath, cough, chills. He reports his symptoms began approximately 2 days ago. He states cough is nonproductive. Patient reports he has had intermittent abdominal discomfort as well across the lower abdomen. Denies flank pain, urinary symptoms. Denies nausea, vomiting, diarrhea. at bedside reports patient has been in the nursing facility for approximately 3 years due to debility following treatment for metastatic B-cell lymphoma and also history of CVA. His other past medical history includes type 2 diabetes mellitus, permanent atrial fibrillation on chronic anticoagulation with Coumadin, GERD, BPH, hyperlipidemia, gout, anxiety/depression. Hospital Course 1. Acute hypoxic respiratory failure secondary to healthcare associated pneumonia-presented from [facility] with shortness of breath and was found to have a consolidation on the right lower lobe with a nodule in the right upper lobe and was started on Zosyn and vancomycin. He had a MRSA screen which was negative and therefore the vancomycin was discontinued, his blood cultures were negative and his urine Legionella and strep antigens were also negative. He is respiratory status did improve however also on admission he was found to have elevated LFTs which had significantly increased during his stay here. Multiple imaging modalities did not demonstrate a reason for the elevated LFTs, and he did have some improvement in his AST on the day of discharge however his ALT continue to climb. He was started on IV fluids which seemed to have helped however in discussion with the family for the last several days including with meetings with hospice, they decided that they prefer if he went to inpatient hospice. 2. Acute hepatitis/acute kidney injury/chronic kidney disease stage III 3. DM 2 4. Permanent A. fib/mechanical mitral valve repair/HTN/HLD 5. GERD 6. BPH 7. Anxiety/depression 8. Gout - Physical Exam Vital Signs Temp Pulse Resp BP Pulse Ox 97.4 F L 85 24 H 122/67 H 93 07/13/18 12:30 07/13/18 12:30 07/13/18 12:30 07/13/18 12:30 07/13/18 12:30 Oxygen Flow Rate (L/min) 2 Oxygen Delivery Method Room Air Weight: 244 lb 15.995 oz Body Mass Index (BMI) 29.8 Intake and Output for Last 24 Hours 07/11/18 07/12/18 07/13/18 23:59 23:59 23:59 Intake Total 1542.1 / 1542.1 5961.4 / 5961.4 873.1 / 873.1 Output Total 200 / 200 500 / 500 100 / 100 Balance 1342.1 / 1342.1 5461.4 / 5461.4 773.1 / 773.1 Microbiology Past 72 Hours 07/10/18 13:49 Urine Culture - Final Urine, Catheterized Culture exhibits no growth. 07/10/18 13:56 Blood Culture - Preliminary Blood Culture (Wb) - Left Wrist No growth in 48 hours. 07/10/18 12:25 Blood Culture - Preliminary Blood Culture (Wb) - Left Forearm No growth in 48 hours. 07/10/18 18:45 Nasal Screen MRSA/MSSA - Final Swab (Method) 07/10/18 18:45 Legionella Antigen - Final Urine Catheter - Ch[place]al 07/10/18 18:45 Streptococcus pneumoniae Antigen (M - Final Urine Catheter - Chahal Laboratory Tests Past 24 Hrs 07/12/18 07/13/18 07/13/18 15:38 05:30 05:30 WBC 7.8 RBC 3.57 L Hgb 11.4 L Hct 35.5 L MCV 99.4 H MCH 31.9 MCHC 32.1 RDW 17.6 H RDW Differential 62.0 H Plt Count 127 L MPV 12.8 H Immature Gran % (Auto) 0.300 Neut % (Auto) 75.0 H Lymph % (Auto) 14.1 L [place] % (Auto) 9.9 Eos % (Auto) 0.4 Baso % (Auto) 0.3 Absolute Neuts (auto) 5.9 Absolute Lymphs (auto) 1.10 Total Counted Not Reportable Nucleated RBC % 2 Diff Path Review May foll Absolute Retic 0.16 PT INR Sodium 147 H Potassium 5.1 Chloride 118 H Carbon Dioxide 18.0 L Anion Gap 11 BUN 62 H Creatinine 2.91 H Estim Creat Clear Calc 24.03 Est GFR (MDRD) Af Amer 27 L Est GFR (MDRD) Non-Af 22 L BUN/Creatinine Ratio 21.3 H Glucose 113 H Calcium 8.0 L Total Bilirubin 1.50 H AST 1673 H ALT 1850 H Alkaline Phosphatase 118 H Total Protein 6.2 L Albumin 2.4 L Globulin 3.8 Albumin/Globulin Ratio 0.6 L Vancomycin Trough 16.8 H 07/13/18 08:32 WBC RBC Hgb Hct MCV MCH MCHC RDW RDW Differential Plt Count MPV Immature Gran % (Auto) Neut % (Auto) Lymph % (Auto) [place] % (Auto) Eos % (Auto) Baso % (Auto) Absolute Neuts (auto) Absolute Lymphs (auto) Total Counted Nucleated RBC % Diff Path Review Absolute Retic PT 40.1 H INR 4.1 H* Sodium Potassium Chloride Carbon Dioxide Anion Gap BUN Creatinine Estim Creat Clear Calc Est GFR (MDRD) Af Amer Est GFR (MDRD) Non-Af BUN/Creatinine Ratio Glucose Calcium Total Bilirubin AST ALT Alkaline Phosphatase Total Protein Albumin Globulin Albumin/Globulin Ratio Vancomycin Trough POC Glucose 07/13/18 07/13/18 07/12/18 11:05 06:48 23:00 POC Glucose 129 H 118 H 123 H 07/12/18 16:24 POC Glucose 104 Discharge Activity: Return to Normal Activity, No Restrictions Home Medications: Medications to take at Discharge Ondansetron [Zofran] 4 mg PO Q6H PRN PRN 05/14/15 Polyethylene Glycol 3350 [Miralax] 17 gm PO DAILY 05/14/15 Sennosides/Docusate Sodium [Senna-Docusate Sodium Tablet] 1 ea PO BID 05/14/15 Allopurinol [Zyloprim] 100 mg PO DAILYCM #0 tab 06/24/15 Famotidine [Pepcid] 20 mg PO DAILY #0 tab 06/24/15 Bisacodyl 10 mg RC PRN PRN 08/17/17 Guaifenesin [Robitussin] 10 ml PO Q4H PRN PRN 08/17/17 Hydrocortisone [Anusol Hc] 25 mg RECTAL BID PRN PRN 08/17/17 Magnesium Hydroxide [Milk Of Magnesia] 30 ml PO DAILY PRN PRN 08/17/17 Magnesium Oxide [Magnesium] 400 mg PO QHS 08/17/17 Melatonin 2 mg PO QHS 08/17/17 Menthol [Biofreeze] 1 applic TP Q2H PRN PRN 08/17/17 Midodrine HCl [Proamatine] 2.5 mg PO TID 08/17/17 Mineral Oil/Petrolatum,White [Eucerin] 1 applic TOPICAL DAILY PRN PRN 08/17/17 Na Phos,M-B/Na Phos,Di-Ba [Fleet Enema] 120 ml RECTAL PRN PRN 08/17/17 Tamsulosin HCl [Flomax] 0.4 mg PO DAILY@1730 08/17/17 Warfarin [Coumadin ([facility])] 5 mg PO SUTUTHSA 08/17/17 Warfarin [Coumadin] 2.5 mg PO MOWEFR 08/17/17 buPROPion XL [Wellbutrin Xl] 300 mg PO DAILY 08/17/17 acetaminophen 650 mg rectal suppository 650 mg RC Q4H PRN PRN 07/01/18 aluminum-magnesium hydroxide 200 mg-200 mg/5 mL oral suspension 30 ml PO Q4H PRN ml 07/01/18 artificial tears (hypromellose) (PF) 0.3 % eye drops 2 drp OPHTHALMIC 4-8XD 07/01/18 loratadine 10 mg tablet 10 mg PO DAILY 07/01/18 polysaccharide iron complex 150 mg iron capsule 150 mg PO DAILY cap 07/01/18 quetiapine 25 mg tablet 25 mg PO BID 07/01/18 Acetaminophen [Tylenol Tablet] 650 mg PO Q4H PRN PRN 07/10/18 Amoxicillin/Potassium Clav [Augmentin 875-125 Tablet] 1 each PO BID 07/10/18 Aspirin [Aspir-Low] 81 mg PO DAILY 07/10/18 Atorvastatin Calcium [Lipitor] 40 mg PO QHS 07/10/18 Primary Care Physician: Alpesh Edgar III, MD [Primary Care Provider] - Disposition: Hospice Medical Facility Minutes spent on discharge:: 35 Patient Condition:: Stable Medical Necessity - Tobacco Use Smoking Status: Never smoker Meaningful Use Info Meaningful Use Diagnoses (Choose all that apply): None applicable Code Visit Inpatient E&M: 58700 Disch Hosp
--- NOTE | 2018-07-13 14:23 | CASEMGMT ---
Pt will be going to the inpt hospice unit. SW let [facility] know. No further needs. GEOFFREY Jalloh
--- NOTE | 2018-07-13 14:50 | CHAPLAIN ---
Type of Pastoral Visit _x__ Initial Visit ___ Follow-up Visit ___ On-call Visit ___ General Patient Visit ___ Spiritual Assessment ___ Family Conference ___ Bereavement ___ Rapid Response ___ Code Blue ___ Other (describe below) Pastoral Care Referral From _x__ Patient _x__ Family ___ Nurse ___ Physician ___ Manager Pe ___ Rubber Gasket Inspector Trimmer ___ Other (describe below) Sacrament/Intervention _x__ Active listening ___ Anointing ___ Jew ___ Bereavement ___ Communion ___ Billie exploration ___ ___ Life review _x__ Prayer ___ Reconciliation ___ Sacrament of Sick _x__ Supportive presence ___ Wedding ___ Other (describe below) Pastoral Comments family is consulting with hospice; pt was able to speak to this hand candle dipper but had difficulty staying awake; pt welcomed prayer
[2018-07-14 09:07] LABS: HEPATITIS B SURFACE AG Negative (Negative); Hepatitis A IgM Antibody Negative (Negative); Hepatitis B Core AB IgM Negative (Negative)
[2018-07-14 12:04] LABS: Pathologist Review Reviewed
[2018-07-14 15:48] LABS: Hep C Antibodies 0.1 s/co ratio (0.0-0.9)
== END 2018-07-13 15:15 | disposition hospice, inpatient (51) | DRG 193 ==
LOC: ED 13:09 → PCU 16:34
PROVIDERS: Internal Medicine; Nurse Practitioner Family; Admitting Provider Family Medicine; Emergency Provider Emergency Medicine; Family Provider Family Medicine; PCP Family Medicine; Visit Provider Family Medicine
DX: J18.9 Pneumonia, unspecified organism (principal); J96.01 Acute respiratory failure with hypoxia; N17.9 Acute kidney failure, unspecified; B17.9 Acute viral hepatitis, unspecified; I12.9 Hypertensive chronic kidney disease with stage 1 through stage 4 chronic kidney disease, or unspecified chronic kidney disease; E11.22 Type 2 diabetes mellitus with diabetic chronic kidney disease; N18.3 Chronic kidney disease, stage 3 (moderate); I48.2 Chronic atrial fibrillation; E86.0 Dehydration; R79.1 Abnormal coagulation profile; E78.5 Hyperlipidemia, unspecified; M10.9 Gout, unspecified; N40.0 Benign prostatic hyperplasia without lower urinary tract symptoms; K21.9 Gastro-esophageal reflux disease without esophagitis; F31.9 Bipolar disorder, unspecified; F22 Delusional disorders; F41.9 Anxiety disorder, unspecified; Z66 Do not resuscitate; Z79.01 Long term (current) use of anticoagulants; Z79.82 Long term (current) use of aspirin; Z79.899 Other long term (current) drug therapy; Z85.841 Personal history of malignant neoplasm of brain; Z86.73 Personal history of transient ischemic attack (TIA), and cerebral infarction without residual deficits; Z85.72 Personal history of non-Hodgkin lymphomas; Z86.2 Personal history of diseases of the blood and blood-forming organs and certain disorders involving the immune mechanism; Z86.718 Personal history of other venous thrombosis and embolism; Z85.820 Personal history of malignant melanoma of skin; Z95.0 Presence of cardiac pacemaker; Z95.2 Presence of prosthetic heart valve
CPT/HCPCS: 36415; 36600; 51702; 70450; 71045; 74176; 76705; 80048; 80053; 80074; 80202; 81001; 82803; 82962; 83036; 83605; 83690; 84484; 85025; 85027; 85610; 85730; 87040; 87081; 87086; 87449; 92526; 92610; 93005; 94002; 94640; 97110; 97162; 97166; 97530; 97535; 97802; 99285; J7030; J7040; J7050; A4216; J3490